=== PATIENT | female | born 1975 | race Caucasian/White ===

== ENCOUNTER 2017-09-07 16:39 | Emergency (ER) | payer BC ==
--- OUTSIDE RECORDS SUMMARY | 2017-09-07 16:48 | XMS REPORT ---
:1975 External Reference #:[id number] Author Organization [facility] Address [address] [place] [address] [place] [address] Phone [phone] Care Team Providers Name Role Phone Ryne Montanez MD Primary Care Physician Unavailable Payers Type Date Identification Numbers Payment Provider Subscriber Health Maintenance Policy Number: Blue Shield Ppo Kasey Chaparro [facility] (O) [id number] PayID: [id number] [address] [address] G[place]A Santa [address] Medigap Part B Effective: 03/29/2013 Policy Number: BS Levy Chaparro [id number] Expires: 10/21/2014 PayID: [id number] [address] [address] GISELLA Figueroa [address] Medigap Part B Effective: 05/27/2012 Policy Number: BS Levy Chaparro [id number] Expires: 03/28/2013 PayID: [id number] [address] [address] GISELLA Figueroa [address] Commercial Effective: Policy Number: BS Sandy Chaparro 03/29/2011 [id number] Facets Expires: 05/26/2012 Group Number: [id number] [address] [address] PayID: [id number] GISELLA Figueroa [address] Medigap Part B Expires: 03/28/2011 Policy Number: [id number] BS Anh MICHELA Chaparro Group Name: [employer] Option [address] [address] PayID: [id number] GISELLA Figueroa [address] Problems Date Description Provider Status Onset: 02/18/2010 Tobacco user Ryne Montanez M.D. Active Onset: 02/18/2010 Irritable bowel syndrome Ryne Montanez M.D. Active Onset: 02/18/2010 Neck pain Ryne Montanez M.D. Active Onset: 02/18/2010 Stress reaction causing mixed Rasta Zepeda M.D. Active disturbance of emotion and conduct Onset: 12/02/2010 Multiple sclerosis Ryne Montanez M.D. Active Onset: 12/02/2010 Cyst of ovary Ana Wolff M.D. Active Onset: 10/26/2012 External hordeolum Ryne Montanez M.D. Active Onset: 06/14/2014 Migraine without aura, not Ryne Montanez M.D. 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 Cigarette Use Pack Years - 18 Cigarette Use Quit - Age 33 Cigarette Use Restarted smoking 11/2009 Cigarette Use Quit smoking again 09/2010 Cigarette Use Quit 11/28/11 ETOH Use Occasionally consumes alcohol Smoking Patient is a former smoker Daily Caffeine Consumes on average 5-10 cups of regular coffee per day Allergies, Adverse Reactions, Alerts Date Description Reaction Status Severity Comments 07/12/2009 NKDA active Medications Medication Date Status Form Strength Qnty SIG Indications Ordering Provider Azithromycin 02/23/ Active Tablets 250mg 6tabs 2 tab J02.9 Ryne 2017 today and Tarik jones M.D. daily Amitriptyline 06/14/ Active Tablets 10mg 90tabs take 3 G43.009 Ryne HCL 2015 tablets at Tarik bedtime Luisa Dandelion Root / Active Capsules 520mg 1 tab po Unknown 0000 daily Ginko Biloba / Active 1 tab po Unknown 0000 daily Probiotic / Active Capsules 14caps 1 by mouth Unknown 0000 every day Multivitamins / Active Capsules 30caps 1 by mouth Unknown 0000 every day Vitamin C / Active Tablets 1000mg 1 by mouth Unknown 0000 every day Vitamin D 00/00/ Active 1 tab po Unknown 0000 daily Aubagio / Active Tablets 14mg Unknown 0000 Triamcinolone 09/12/ Hx Ointment 0.1% 80gm every day L23.7 Elver Acetonide 2016 - as needed Srinivas Etienne, 02/23/ M.D.,[facility] 2017 Medrol 09/12/ Hx Tablets 4mg 1pak medrol L23.7 Elver 2016 - dosepack Srinivas Etienne, 09/22/ as M.Srinivas,[facility] 2016 directed (patient will call if she wants filled) Azithromycin 10/24/ Hx Tablets 250mg 6tabs 2 tab 784.1 Ryne 2014 - and Pachikara then 1talarisa MRadha. 2015 daily Sumatriptan 06/14/ Hx Tablets 100mg 10tabs use at 346.10 Ryne Succinate 2014 - onset of Pachikara 02/23/ head , M.Srinivas 2017 ache,may repeat after 2h as needed Azithromycin 05/01/ Hx Tablets 250mg 6tabs 2 tab 466.0 Penfield 2014 - and Pachikara then 1camachob , M.DSimona 2014 daily Azithromycin 05/01/ Hx Tablets 250mg 6tabs 2 tab 466.0 Ryne 2014 - and Pachikara 1camachob MSimonaDSimona 2014 daily Copaxone 02/06/ Hx Soln 40mg/ml 36unit inject sq Rob Laureano 2013 - Prefill s 3x weekly Kevin, 01/08/ Syringe M.Srinivas 2016 No Active 09/08/ Unknown Medications 2013 - 2013 Aubagio 11/30/ Hx Tablets 7mg 30tabs 1 po qd Rob Laureano 2012 - Kevin 09/08/ M.DSimona 2013 Amoxicillin 02/25/ Hx Capsules 500mg 20caps 1 cap bid 461.1 Carolann 2011 - for 10 Soraya, 10/26/ days N.P. 2013 Nasal Saline 02/25/ Hx Solution 0.65% 1ml 2 sprays 461.1 Carolann 2011 - in each Soraya, 10/26/ nostril 5 N.P. 2013 times a day Bactrim DS 12/09/ Hx Tablets 800-160mg 6tabs twice 599.0 Carolann 2011 - daily for Soraya, 3 days N.P. 2011 Avonex 05/25/ Hx Kit 30mcg/0.5M 4units 30 mcg im Rob Laureano 2012 - L weekly Kevin, 11/30/ Luisa 2012 Chantix Starter 05/28/ Hx Tablets 1tabs as 305.1 Ryne Chakraborty 2010 - directed Pachikara 12/02/ Luisa 2010 Asa 03/25/ Hx 81mg 1 po qd Ryne 2009 - Pachikara 05/28/ Luisa 2010 Amoxicillin/Cla 02/11/ Hx Tablets 875-125mg 20tabs 1 po bid 461.9 Ryne vulanate 2009 - Pachikara Potassium 02/18/ Luisa 2009 Amitriptyline 12/04/ Hx Powder Ryne HCL 2009 - Pachikara 02/25/ Luisa 2011 Nicoderm CQ 12/04/ Hx Patches 14mg/24HR 30unit once daily 305.1 Ryne 2009 - 24HR s Pachikara 02/18/ Luisa 2009 None / Hx Unknown 0000 - 2009 Copaxone / Hx Kit 20mg/ml sc qd Unknown 0000 - 2011 Immunizations CPT Code Status Date Vaccine Lot # [id number] Given 05/15/2011 Measles Mumps And Rubella MMR [id number] Vital Signs Date Vital Result Comment 09/07/2017 Height 66 inches 5'6" Weight 157.00 lb Heart Rate 95 /min BP Systolic 118 mmHg BP Diastolic 80 mmHg O2 % BldC Oximetry 98 % BMI (Body Mass Index) 25.3 kg/m2 02/23/2017 Weight 145.00 lb Heart Rate 75 /min BP Systolic Sitting 118 mmHg BP Diastolic Sitting 72 mmHg Body Temperature 97.1 F O2 % BldC Oximetry 98 % 01/08/2017 Height 66 inches 5'6" Weight 143.12 lb Heart Rate 71 /min BP Systolic 106 mmHg BP Diastolic 74 mmHg Body Temperature 97.2 F O2 % BldC Oximetry 96 % BMI (Body Mass Index) 23.1 kg/m2 09/13/2015 Height 66 inches 5'6" Weight 151.38 lb BP Systolic 70 mmHg BP Systolic Standing 110 mmHg BP Diastolic Standing 78 mmHg Body Temperature 96.5 F O2 % BldC Oximetry 96 % BMI (Body Mass Index) 24.4 kg/m2 05/03/2015 Height 66 inches 5'6" Weight 146.38 lb Heart Rate 88 /min BP Systolic Sitting 118 mmHg BP Diastolic Sitting 72 mmHg Body Temperature 96.4 F O2 % BldC Oximetry 98 % BMI (Body Mass Index) 23.6 kg/m2 10/24/2014 Height 66 inches 5'6" Weight 143.00 lb Heart Rate 82 /min BP Systolic Sitting 100 mmHg BP Diastolic Sitting 60 mmHg Body Temperature 98.9 F O2 % BldC Oximetry 94 % BMI (Body Mass Index) 23.1 kg/m2 07/12/2014 Height 66 inches 5'6" Weight 149.00 lb Heart Rate 72 /min BP Systolic Sitting 124 mmHg BP Diastolic Sitting 78 mmHg Respiratory Rate 12 /min BMI (Body Mass Index) 24.0 kg/m2 06/14/2014 Height 66 inches 5'6" Weight 149.50 lb Heart Rate 91 /min BP Systolic Sitting 108 mmHg BP Diastolic Sitting 70 mmHg Pain Level 6 O2 % BldC Oximetry 95 % BMI (Body Mass Index) 24.1 kg/m2 06/06/2014 Height 66 inches 5'6" Weight 146.00 lb Heart Rate 68 /min BP Systolic Sitting 116 mmHg BP Diastolic Sitting 64 mmHg Respiratory Rate 16 /min BMI (Body Mass Index) 23.6 kg/m2 05/01/2014 Height 66 inches 5'6" Weight 148.50 lb Heart Rate 88 /min BP Systolic Sitting 110 mmHg BP Diastolic Sitting 60 mmHg Body Temperature 96.5 F O2 % BldC Oximetry 99 % BMI (Body Mass Index) 24.0 kg/m2 02/06/2014 Height 66 inches 5'6" Weight 138.00 lb Heart Rate 72 /min BP Systolic Sitting 104 mmHg BP Diastolic Sitting 82 mmHg Respiratory Rate 16 /min BMI (Body Mass Index) 22.3 kg/m2 12/26/2013 Height 66 inches 5'6" Weight 143.00 lb Heart Rate 64 /min BP Systolic Sitting 126 mmHg BP Diastolic Sitting 80 mmHg Respiratory Rate 16 /min BMI (Body Mass Index) 23.1 kg/m2 10/17/2013 Weight 143.00 lb Heart Rate 70 /min BP Systolic Sitting 110 mmHg BP Diastolic Sitting 110 mmHg 09/08/2013 Height 66 inches 5'6" Weight 144.00 lb Heart Rate 74 /min BP Systolic Sitting 110 mmHg BP Diastolic Sitting 70 mmHg BMI (Body Mass Index) 23.2 kg/m2 10/26/2012 Height 66 inches 5'6" Weight 138.00 lb Heart Rate 59 /min BP Systolic Sitting 116 mmHg BP Diastolic Sitting 80 mmHg BMI (Body Mass Index) 22.3 kg/m2 02/26/2012 Height 66 inches 5'6" Weight 139.00 lb Heart Rate 92 /min BP Systolic 100 mmHg BP Diastolic 80 mmHg Body Temperature 98.7 F BMI (Body Mass Index) 22.4 kg/m2 12/10/2011 Weight 146.00 lb Heart Rate 88 /min BP Systolic Sitting 108 mmHg BP Diastolic Sitting 70 mmHg Body Temperature 98.5 F lt ear 12/02/2010 Weight 146.00 lb Heart Rate 68 /min BP Systolic Sitting 112 mmHg BP Diastolic Sitting 68 mmHg 05/28/2010 Weight 136.00 lb Heart Rate 76 /min BP Systolic 116 mmHg BP Diastolic 70 mmHg 03/26/2010 Heart Rate 80 /min BP Systolic 114 mmHg BP Diastolic 80 mmHg 03/11/2010 Weight 135.00 lb Heart Rate 80 /min BP Systolic 108 mmHg BP Diastolic 78 mmHg 02/18/2010 Weight 139.00 lb Heart Rate 90 /min BP Systolic Sitting 120 mmHg BP Diastolic Sitting 80 mmHg 02/11/2010 Weight 142.00 lb Heart Rate 84 /min BP Systolic Sitting 116 mmHg BP Diastolic Sitting 70 mmHg Body Temperature 96.2 F Tympanically 12/04/2009 Weight 142.00 lb Heart Rate 93 /min BP Systolic Sitting 116 mmHg BP Diastolic Sitting 68 mmHg 10/03/2009 Weight 146.00 lb Heart Rate 76 /min BP Systolic Sitting 90 mmHg BP Diastolic Sitting 60 mmHg 07/31/2009 Heart Rate 78 /min BP Systolic Sitting 118 mmHg BP Diastolic Sitting 64 mmHg 07/12/2009 Height 65.75 inches 5'5.75" Weight 142.00 lb Heart Rate 92 /min BP Systolic 120 mmHg BP Diastolic 60 mmHg O2 % BldC Oximetry 93 % BMI (Body Mass Index) 23.1 kg/m2 Results Test Date Test Result H/L Range Note Laboratory test finding 02/23/2017 Rapid Group A Strep positive Lipid Profile (Trig/Chol/HDL) 01/01/2017 Triglycerides 56 mg/dL 1 Cholesterol 172 mg/dL 2 HDL Cholesterol 68.9 mg/dL 3 LDL Cholesterol 92 mg/dL 4 Laboratory test finding 01/01/2017 Glucose 84 mg/dL 70-100 TSH (Thyroid Stim Horm) 1.37 mcIU/mL 0.34-5.60 Free T4 (Free Thyroxine) 0.67 ng/dL 0.61-1.12 Laboratory test finding 10/24/2014 Rapid Group A Strep negative Laboratory test finding 10/24/2014 Culture Throat SEE RESULT BELOW 5 Laboratory test finding 06/14/2014 Erythrocyte Sed Rate 9 mm/Hr 0-14 Comp Metabolic Panel 12/01/2012 Sodium 140 mmol/L 133-145 Potassium 4.9 mmol/L 3.5-5.0 Chloride 109 mmol/L 101-111 Co2 Carbon Dioxide 27.0 mmol/L 22-32 Anion Gap 4.0 mmol/L 2-11 Glucose 82 mg/dL 70-100 Blood Urea Nitrogen 13 mg/dL 6-24 Creatinine 0.60 mg/dL 0.50-1.40 BUN/Creatinine Ratio 21.7 High 8-20 Calcium 9.5 mg/dL 8.1-9.9 Total Protein 7.2 g/dL 6.2-8.1 Albumin 4.0 g/dL 3.6-5.4 Globulin 3.2 g/dL 2-4 Albumin/Globulin Ratio 1.3 1-3 Total Bilirubin 0.6 mg/dL 0.4-1.5 Alkaline Phosphatase 34 U/L 30-110 Alt 10 U/L Low 14-54 Ast 17 U/L 12-42 Egfr Non- 112.5 >60 Egfr 144.7 >60 6 CBC With Manual Diff 12/01/2012 White Blood Count 3.9 10^3/uL Low 4.8- 10.8 Red Blood Count 4.67 10^6/uL 4.0-5.4 Hemoglobin 12.7 g/dL 12.0-16.0 Hematocrit 38 % 35-47 Mean Corpuscular Volume 81 fL 80-97 Mean Corpuscular Hemoglobin 27 pg 27-31 Mean Corpuscular HGB Conc 34 g/dL 31-36 Red Cell Distribution Width 15 % 10.5-15 Platelet Count 228 10^3/uL 150-450 Mean Platelet Volume 8 um3 7.4-10.4 Abs Neutrophils 2.1 10^3/uL 1.5-7.7 Abs Lymphocytes 1.2 10^3/uL 1.0-4.8 Abs Monocytes 0.3 10^3/uL 0-0.8 Abs Eosinophils 0.2 10^3/uL 0-0.6 Abs Basophils 0 10^3/uL 0-0.2 Abs Nucleated RBC 0 10^3/uL Neutrophil % 49 % 38-83 Lymphocytes % 39 % 25-47 Monocytes % 4 % 0-13 Eosinophils % 6 % 0-6 Reactive Lymph % 2 % 0-6 RBC Morphology Normal Normal Urinalysis W/Microscopic 12/10/2011 Ua Color YELLOW Yellow Appearance-Urine CLEAR Clear Specific Hillister-Ur 1.010 1.010-1.030 Esterase-Urine 1+ Negative Nitrite NEGATIVE Negative Gannpteltpts-Mu-FPC NEGATIVE Negative Protein-Urine NEGATIVE Negative PH-Urine 8.0 5-9 Blood-Urine NEGATIVE Negative Ketones-Urine NEGATIVE Negative Bilirubin-Ur NEGATIVE Negative Glucose-Urine NEGATIVE Negative WBC-Urine 5-10 0-5 RBC-Urine NONE SEEN 0-2 Epith Cells-Ur MODERATE None Bacteria-Urine TRACE None Urine Culture & 12/10/2011 M <SEE 7 Sensitivi NOTE> Ua Routine 12/10/2011 Ua Specific Hillister 1.000 Ua PH 8.5 Ua Color yellow Ua Appera clear Ua WBC trace Ua Protein neg Ua Glucose neg Ua Ketones neg Ua Bilirubin small Ua Urobilinogen neg Ua Nitrite neg Ua Occult Blood trace Comp Metabolic Panel 07/23/2011 Sodium 133 mmol/L Low 135-145 Potassium 4.0 mmol/L 3.5-5.0 Chloride 102 mmol/L 101-111 Co2 (Carbon Dioxide) 28.0 mmol/L 22-32 Anion Gap 3.0 mmol/L 2-11 8 Glucose 87 mg/dL 70-100 BUN 6 mg/dL 6-24 Creatinine 0.7 mg/dL 0.50-1.40 One Over Creatinine 1.42 BUN/Creatinine Ratio 8.6 8-20 Calcium 8.7 mg/dL 8.1-9.9 Total Protein 6.8 GM/DL 6.2-8.1 Albumin 3.7 GM/DL 3.6-5.4 Globulin 3.1 GM/DL 2-4 Albumin/Globulin Ratio 1.2 1-3 Bilirubin Total 0.6 mg/dL 0.4-1.5 9 Alkaline Phosphatase 63 U/L 30-110 Alt (SGPT) 21 U/L 14-54 Ast (Sgot) 21 U/L 12-42 eGFR Non- 94.7 > 60 eGFR 121.8 > 60 10 CBC With Manual Diff 07/23/2011 White Blood Count 5.9 CUMM 4.8-10.8 Red Cell Count 4.31 CUMM 4.2-5.4 Hemoglobin 11.5 g/dL Low 12.0-16.0 Hematocrit 34 % Low 35-47 Mean Corpuscular Volume 79 um3 79-97 Mean Corpuscular Hemoglob 27 pg 27-31 Mean Corpuscular HGB Cone 34 g/dL 32-36 Redcell Distribution WDTH 16 % High 10.5-15 Platelet Count 321 CUMM 150-450 Mean Platelet Volume 7.7 um3 7.4-10.4 Polysegmented Neutrophil 56 % 38-83 Lymphocyte 38 % 25-47 Monocyte 2 % 0-13 Eosinophil 1 % 0-6 Basophil 1 % 0-2 Atypical Lymph 2 % 0-6 Absolute Neutrophil Count 3.30 RBC Morphology NORMAL Laboratory test finding 05/11/2011 Mumps Igg Negative () 11 Rubeola Igg AB Positive () 12 Rubella Screen EQUIVOCAL Immune 13 Laboratory test finding 04/14/2010 Erythrocyte Sed Rate 8 MM/HR 0-15 Angiotensin Converting Enzyme 18 U/L 8-53 14 Lyme Disease Serology Negative Negative 15 Jenn (Antinuclear Antibodies) 04/14/2010 Antinuclear AB NEGATIVE Negative Ssa/SSB 04/14/2010 Ssa NEGATIVE Negative SSB NEGATIVE Negative CBC With Electronic Diff 02/18/2010 White Blood Count 6.8 CUMM 4.8-10.8 Red Cell Count 4.66 CUMM 4.2-5.4 Hemoglobin 12.3 g/dL 12.0-16.0 Hematocrit 37 % 35-47 Mean Corpuscular Volume 80 um3 79-97 Mean Corpuscular Hemoglob 26 pg Low 27-31 Mean Corpuscular HGB Cone 33 g/dL 32-36 Redcell Distribution WDTH 16 % High 10.5-15 Platelet Count 298 CUMM 150-450 Mean Platelet Volume 7.6 um3 7.4-10.4 Gran % 77.2 % 38-83 Lymph % 15.8 % Low 25-47 Mononuclear % 5.2 % 1-9 Eosinophil % 0.7 % 0-6 Basophil % 1.1 % 0-2 Abs Lymphs 1.1 1.0-4.8 Abs Mononuclear 0.4 0-0.8 Absolute Neutrophil Count 5.3 1.5-7.7 Abs Eosinophils 0 0-0.6 Abs Basophils 0.1 0-0.2 16 Comp Metabolic Panel 02/18/2010 Sodium 135 mmol/L 135-145 Potassium 4.0 mmol/L 3.5-5.0 Chloride 103 mmol/L 101-111 Co2 (Carbon Dioxide) 26.0 mmol/L 22-32 Anion Gap 6.0 mmol/L 2-11 17 Glucose 92 mg/dL 70-100 18 BUN 4 mg/dL Low 6-24 Creatinine 0.70 mg/dL 0.50-1.40 One Over Creatinine 1.40 BUN/Creatinine Ratio 5.7 Low 8-20 Calcium 9.3 mg/dL 8.1-9.9 Total Protein 7.4 GM/DL 6.2-8.1 Albumin 4.4 GM/DL 3.6-5.4 Globulin 3.0 GM/DL 2-4 Albumin/Globulin Ratio 1.5 1-3 Bilirubin Total 0.7 mg/dL 0.4-1.5 19 Alkaline Phosphatase 45 U/L 30-110 Alt (SGPT) 12 U/L Low 14-54 Ast (Sgot) 16 U/L 12-42 eGFR Non- 101.2 > 60 eGFR 122.5 > 60 20 Laboratory test finding 02/18/2010 TSH 1.18 MIU/ML 0.34-5.60 Vitamin B12 And Folate Serum 02/18/2010 Vitamin B12 355 pg/mL 180-914 Folic Acid 5.7 NG/ML 2-16 1 Desirable <150 Borderline high 150-199 High 200-499 Very High >500 2 Desirable <200 Borderline high 200-239 High >239 3 Low <40 Desirable: 40-60 High: >60 4 Desirable: <100 mg/dL Near Optimal: 100-129 mg/dL Borderline High: 130-159 mg/dL High: 160-189 mg/dL Very High: >189 mg/dL 5 SEE RESULT BELOW Name: KASEY CHAPARRO : [address]: Ryne Montanez MD Acct: [id number] Unit: [id number] AGE: 38 Location: [facility] Re10/24/14 SEX: F Status: REG REF SPEC: [id number] YESENIA: 10/24/14-7 [facility] [address]: Ryne Montanez MD REQ: [id number] RECD: 10/24/14 STATUS: COMP _ SOURCE: THROAT SPDESC: ORDERED: Throat Culture Procedure Result Verified Site Throat Culture Final 10/26/14- 0820 ML Organism 1 STREP GROUP B Quantity 2+ Throat cultures are clinically indicated to detect the presence of group A strep, arcanobacterium and yeast. In certain cases, predominating organisms will be reported.Susceptibility testing of penicillins and other B-lactamsapproved by FDA for treatment of Streptococcus pyogenes(Group A Strep) and Streptococcus agalactiae (Group B Strep)is not necessary for clinical purposes and need not be doneroutinely, since as with vancomycin, resistant strains havenot been recognized. (CLSI K356-N05;p.66) Positive isolates will be saved for one week. Please call the Microbiology Laboratory if further susceptibility testing is needed. * ML - MAIN LAB ([facility]) . END OF REPORT * ML=Testing performed at Main Lab DEPARTMENT OF PATHOLOGY, [address] [place] [address] John Burrows M.D. Director [facility] # [id number] 6 Because ethnic data is not always readily available, this report includes an eGFR for both -Americans and non- Americans. The National Kidney Disease Education Program (NKDEP) does not endorse the use of the MDRD equation for patients that are not between the ages of 18 and 70, are , have extremes of body size, muscle mass, or nutritional status, or are non- or non-. According to the National Kidney Foundation, irrespective of diagnosis, the stage of the disease is based on the level of kidney function: Stage Description GFR(mL/min/1.73 m(2)) 1 Kidney damage with normal or decreased GFR 90 2 Kidney damage with mild decrease in GFR 60-89 3 Moderate decrease in GFR 30-59 4 Severe decrease in GFR 15-29 5 Kidney failure <15 (or dialysis) 7 RUN DATE: 12/13/11 [facility] NMI LIVE PAGE 1 RUN TIME: 936 Specimen Inquiry RUN USER: INTERFACE Name: KASEY VALENTIN Status: REG REF Re12/10/11 Age/Sex: 35/F Unit#: [id number] Location: [facility] : 73 SPEC #: [id number] YESENIA: 12/10/11-1015 STATUS: COMP REQ #: [id number] RECD: 12/10/11-[address] [facility] [address]: Carolann Lira NP SOURCE: URINE ENTR: 12/10/11-[address]: SPDES: ORDERED: URINE C S QUERIES: MEDENT REQUISITION # [id number] SPECIMEN DESCRIPTION: URINE, RANDOM Procedure Result Verified Site > URINE CULTURE SENSITIVI Final -0937 ML Organism 1 STAPHYLOCOCCUS SAPROPHYTICUS Routine testing of urine isolates of S. saprophyticus is not advised, because infections respond to concentrations achieved in urine of antimicrobial agents commonly used to treat acute, uncomplicated urinary tract infections (e.g. nitrofurantoin, trimethoprim+/- sulfamethoxazole, or a fluoroquinolone). [facility] March 2001 COLONY COUNT >100,000 ORGANISMS/ML (MANY) - [facility] Permit #[id number] [facility] [employer] [place] [address] DEPARTMENT OF PATHOLOGY, [facility] [employer] [place], [place] [address] [facility] Permit #[id number] John Burrows M.D. Director Violetta Carey M.D. Extender 8 Anion gap measurement may be of limited value in the presence of any alkalosis, especially in a combined acid base disorder. . 9 A metabolite of Naproxen, O-desmethylnaproxen, has been shown to interfere with the Jendrassik-Krystle method for measuring total bilirubin. Samples from patients who have taken Naproxen have shown spurious elevation in total bilirubin levels. 10 Because ethnic data is not always readily available, this report includes an eGFR for both -Americans and non- Americans. The National Kidney Disease Education Program (NKDEP) does not endorse the use of the MDRD equation for patients that are not between the ages of 18 and 70, are , have extremes of body size, muscle mass, or nutritional status, or are non- or non-. According to the National Kidney Foundation, irrespective of diagnosis, the stage of the disease is based on the level of kidney function: Stage Description GFR(mL/min/1.73 m(2)) 1 Kidney damage with normal or decreased GFR 90 2 Kidney damage with mild decrease in GFR 60-89 3 Moderate decrease in GFR 30-59 4 Severe decrease in GFR 15-29 5 Kidney failure <15 (or dialysis) 11 -- REFERENCE VALUE -- Negative 12 -- REFERENCE VALUE -- Negative Test Performed by: [facility] Dpt of Lab Med and Pathology [address] [place] [address] Product Marketing Executive: Rui Pinto III, M.D. 13 EQUIVOCAL;SUGGEST RETEST WITH ANOTHER SAMPLE IN 14-21 DAYS. 14 The use of angiotensin converting enzyme (CLARE)-inhibiting antihypertensive drugs will cause decreased CLARE values. Test Performed by: [facility] Dpt of Lab Med and Pathology [address] [place], [place] [id number] Product Marketing Executive: Rui Pinto III, M.D. 15 Serologic response to B. burgdorferi infection is not detected, but cannot rule out early infection during which low or undetectable antibody levels to B. burgdorferi may be present. If clinically indicated, a new serum specimen should be submitted in 7-14 days. Test Performed by: [facility] Dpt of Lab Med and Pathology [address] [place] [id number] Product Marketing Executive: Rui Pinto III, M.D. 16 Lymphopenia % 17 Anion gap measurement may be of limited value in the presence of any alkalosis, especially in a combined acid base disorder. . 18 Note change in reference range as of 11/17/07. The change was based on recommendations from the [place] [employer]. 19 A metabolite of Naproxen, O-desmethylnaproxen, has been shown to interfere with the Jendrassik-Krystle method for measuring total bilirubin. Samples from patients who have taken Naproxen have shown spurious elevation in total bilirubin levels. 20 Because ethnic data is not always readily available, this report includes an eGFR for both -Americans and non- Americans. The National Kidney Disease Education Program (NKDEP) does not endorse the use of the MDRD equation for patients that are not between the ages of 18 and 70, are , have extremes of body size, muscle mass, or nutritional status, or are non- or non-. According to the National Kidney Foundation, irrespective of diagnosis, the stage of the disease is based on the level of kidney function: Stage Description GFR(mL/min/1.73 m(2)) 1 Kidney damage with normal or decreased GFR 90 2 Kidney damage with mild decrease in GFR 60-89 3 Moderate decrease in GFR 30-59 4 Severe decrease in GFR 15-29 5 Kidney failure <15 (or dialysis) Procedures Date CPT Code Description Status 06/03/2015 Mammogram Completed 07/26/2009 61525 Treadmill Interp/Report Only Completed 07/26/2009 59670 Stress Test Supervsn W/Out I/R Completed 07/12/2009 49926 Noninvasive Ear Or Pulse Oximetry For Oxygen Saturation Completed 07/12/2009 95414 EKG Tracing & Interpretation Completed Encounters Type Date Location Provider CPT E/M Dx Office Visit 02/23/2017 [facility] Ryne Montanez, 35642 J02.9 10:20a - [address] M.D. Office Visit 01/08/2017 [facility] [place] Rod[place]guez[place], 17149 Z00.00 3:20p - [address] M.D. Office Visit 09/13/2015 [facility] Elver Etienne, [address]28 L23.7 4:20p - [address] M.D.,FACP Office Visit 05/03/2015 [facility] [place] [address] N63 2:00p - [address] Office Visit 10/24/2014 [facility] Ryne Montanez, 14155 784.1 11:40a - Keisha Moran 462 Office Visit 07/12/2014 10:45a [facility] Rob Brown, 54285 784.0 MChirag 340 Office Visit 06/14/2014 4:00p [facility] Ryne Montanez, [address]171 346.10 - [address] M.D. Office Visit 06/06/2014 2:30p [facility] Rob Brown, [address] 340 [employer] M.D. Office Visit 05/01/2014 11:20a [facility] Ryne Montanez, [address]137 466.0 - [address] M.D. Office Visit 02/06/2014 10:45a [facility] Rob Brown, 64867 340 [facility] [employer] M.D[employer] Office Visit 12/26/2013 3:30p [facility] Rob Brown, 42453 340 [facility] [employer] M.D[employer] Office Visit 10/17/2013 1:30p [facility] Merari Higgins M.D. 66523 535.50 - [place] Office Visit 09/08/2013 3:00p [facility] Merari Higgins M.D. 76489 V70.0 - Keisha 785.9 723.1 246.8 340 Office Visit 11/30/2012 1:45p [facility] Rob Brown 26195 340 [facility] [employer] M.D[employer] Office Visit 10/26/2012 2:40p [facility] Ryne Montanez, 19828 373.11 - [place] Moran Office Visit 02/26/2012 2:30p [facility] Carolann Lira, 71456 461.1 - [place] N.P. Office Visit 12/10/2011 10:00a [facility] Carolann Lira, 23794 788.1 - [place] N.P. 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 92978 340 [facility] Office Visit 05/28/2010 9:00a DO Not Use [employer] AT Ryne Montanez M.D. 71072 340 [facility] 305.1 V72.62 Office Visit 03/26/2010 8:00a DO Not Use [employer] AT Ryne Montanez M.D. 41867 436 [facility] 305.1 Office Visit 03/11/2010 10:00a DO Not Use [employer] AT Ryne Montanez M.D. 72667 340 [facility] Office Visit 02/18/2010 10:40a DO Not Use [employer] AT Ryne Montanez M.D. 00094 340 [facility] Office Visit 02/11/2010 11:20a DO Not Use [employer] AT Ryne Montanez M.D. 45585 461.9 [facility] 466.0 Office Visit 12/04/2009 4:00p DO Not Use [employer] AT Ryne Montanez M.D. 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 at [facility] - [address] - Ryne Montanez M.D.R31.9 Hematuria, unspecifiedNew Xrays:US Renal And BladderComments:If US is -ve need CT abd and pelvis. ? NephrolithiasisFollow up:2 days
[2017-09-07 17:35] LABS: ABS Basophils 0.1 10^3/ul (0-0.2); ABS Eosinophils 0.2 10^3/ul (0-0.6); ABS Lymphocytes 1.6 10^3/ul (1.0-4.8); ABS Monocytes 0.4 10^3/ul (0-0.8); ABS Neutrophils 4.3 10^3/ul (1.5-7.7); ABS Nucleated RBC 0 10^3/ul; Eosinophil % 3.1 % (0-6); Hematocrit 39 % (35-47); Hemoglobin 12.7 g/dl (12.0-16.0); Lymphocyte % 24.6 % (25-47); Mean Corpuscular HGB Conc 33 g/dl (31-36); Mean Corpuscular Hemoglobin 27 pg (27-31); Mean Corpuscular Volume 83 fL (80-97); Mean Platelet Volume 7.8 um3 (7.4-10.4); Nucleated Red Blood Cells % 0.1; Platelet Count 287 10^3/ul (150-450); Red Blood Count 4.68 10^6/ul (4.00-5.40); Red Cell Distribution Width 15 % (10.5-15); White Blood Count 6.7 10^3/ul (3.5-10.8)
[2017-09-07 17:57] LABS: EGFR Non-African American 86.1 (>60)
--- NOTE | 2017-09-07 19:26 | ED ---
GI/ HPI - HPI Summary HPI Summary: 41-year-old female presents with right-sided flank pain for the past couple days. She denies any history of kidney stones. She denies any pain with urination. She admits occasional hesitancy. She is currently on her period. No abnormal vaginal discharge. Occasional nausea but denies any vomiting. She denies any diarrhea or constipation. She denies any injury. No previous belly surgeries. Pain is mild. Pain is also located in left lower quadrant. Has history of ovarian cysts. No pelvic pain. Pain occasionally radiates to the right leg. No midline tenderness back. No saddle anesthesia. No loss of bowel or bladder. has not tried anything for symptoms. - History of Current Complaint Chief Complaint: EDFlankPain Time Seen by Provider: 09/07/17 17:32 Stated Complaint: FLANK PAIN Pain Intensity: 5 - Allergy/Home Medications Allergies/Adverse Reactions: Allergies Allergy/AdvReac Type Severity Reaction Status Date / Time No Known Allergies Allergy Verified 09/07/17 16:40 Home Medications: Home Medications Amitriptyline TAB* [Elavil TAB*] 30 mg PO DAILY 09/07/17 [History Confirmed 03/15] Ascorbic Acid TAB* [Vitamin C TAB*] 500 mg PO DAILY 09/07/17 [History Confirmed 09/07/17] Calcium Carbonate [Calcium] 500 mg PO DAILY 09/07/17 [History Confirmed 09/07/17 ] Cholecalciferol TAB* [Vitamin D TAB*] 1,000 unit PO DAILY 09/07/17 [History Confirmed 09/07/17] Dandelion Root 1 tab PO DAILY 09/07/17 [History Confirmed 09/07/17] Multivitamins/Minerals TAB* [Theragran/minerals TAB*] 1 tab PO DAILY 09/07/17 [ History Confirmed 09/07/17] Teriflunomide [Aubagio] 7 mg PO DAILY 09/07/17 [History Confirmed 09/07/17] PMH/Surg Hx/FS Hx/Imm Hx Endocrine/Hematology History: Denies: Hx Diabetes Cardiovascular History: Denies: Hx Hypertension, Hx Pacemaker/ICD History: Denies: Hx Dialysis, Hx Renal Disease Sensory History: Denies: Hx Hearing Aid Psychiatric History: Denies: Hx Panic Disorder - Cancer History Hx Chemotherapy: No Hx Radiation Therapy: No - Surgical History Surgery Procedure, Year, and Place: TUBAL LIGATION,THYROID - Immunization History Immunizations Up to Date: Yes Infectious Disease History: No Infectious Disease History: Denies: Traveled Outside the [place] in Last 30 Days - Social History Alcohol Use: Occasionally Substance Use Type: Reports: None Smoking Status (MU): Former Smoker Review of Systems Negative: Fever Negative: Chest Pain Negative: Shortness Of Breath All Other Systems Reviewed And Are Negative: Yes Physical Exam Triage Information Reviewed: Yes Vital Signs On Initial Exam: Initial Vitals Temp Pulse Resp BP Pulse Ox 99 F 87 16 128/81 100 09/07/17 16:40 09/07/17 16:40 09/07/17 16:40 09/07/17 16:40 09/07/17 16:40 Vital Signs Reviewed: Yes Appearance: Positive: Well-Appearing Skin: Positive: Warm, Dry Head/Face: Positive: Normal Head/Face Inspection Eyes: Positive: Normal, Conjunctiva Clear Respiratory/Lung Sounds: Positive: Clear to Auscultation, Breath Sounds Present Cardiovascular: Positive: Normal, RRR Abdomen Description: Positive: Soft, CVA Tenderness (L), Other: - mild LLQ tendernss. Negative: CVA Tenderness (R) Bowel Sounds: Positive: Present Musculoskeletal: Positive: Normal Neurological: Positive: Normal Psychiatric: Positive: Normal Diagnostics - Vital Signs Vital Signs Temp Pulse Resp BP Pulse Ox 09/07/17 19:12 89 98 09/07/17 18:23 76 107/80 100 09/07/17 18:00 79 100 09/07/17 17:53 79 118/82 100 09/07/17 17:34 78 100 09/07/17 16:40 99 F 87 16 128/81 100 - Laboratory Lab Results: Lab Results 09/07/17 09/07/17 Range/Units 17:28 17:28 WBC 6.7 (3.5-10.8) 10^3/ul RBC 4.68 (4.00-5.40) 10^6/ul Hgb 12.7 (12.0-16.0) g/dl Hct 39 (35-47) % MCV 83 (80-97) fL MCH 27 (27-31) pg MCHC 33 (31-36) g/dl RDW 15 (10.5-15) % Plt Count 287 (150-450) 10^3/ul MPV 7.8 (7.4-10.4) um3 Neut % (Auto) 65.2 (38-83) % Lymph % (Auto) 24.6 L (25-47) % Coles % (Auto) 5.8 (0-7) % Eos % (Auto) 3.1 (0-6) % Baso % (Auto) 1.3 (0-2) % Absolute Neuts (auto) 4.3 (1.5-7.7) 10^3/ul Absolute Lymphs (auto) 1.6 (1.0-4.8) 10^3/ul Absolute Monos (auto) 0.4 (0-0.8) 10^3/ul Absolute Eos (auto) 0.2 (0-0.6) 10^3/ul Absolute Basos (auto) 0.1 (0-0.2) 10^3/ul Absolute Nucleated RBC 0 10^3/ul Nucleated RBC % 0.1 Sodium 138 L (139-145) mmol/L Potassium 4.3 (3.5-5.0) mmol/L Chloride 105 (101-111) mmol/L Carbon Dioxide 28 (22-32) mmol/L Anion Gap 5 (2-11) mmol/L BUN 10 (6-24) mg/dL Creatinine 0.74 (0.51-0.95) mg/dL Est GFR ( Amer) 110.7 (>60) Est GFR (Non-Af Amer) 86.1 (>60) BUN/Creatinine Ratio 13.5 (8-20) Glucose 96 (70-100) mg/dL Calcium 9.4 (8.6-10.3) mg/dL Total Bilirubin 0.30 (0.2-1.0) mg/dL AST 15 (13-39) U/L ALT 11 (7-52) U/L Alkaline Phosphatase 42 (34-104) U/L C-Reactive Protein < 1.00 (< 5.00) mg/L Total Protein 7.3 (6.4-8.9) g/dL Albumin 4.4 (3.2-5.2) g/dL Globulin 2.9 (2-4) g/dL Albumin/Globulin Ratio 1.5 (1-3) Lipase 19 (11.0-82.0) U/L Beta HCG, Quant < 0.60 mIU/mL Result Diagrams: 09/07/17 17:28 09/07/17 17:28 Lab Statement: Any lab studies that have been ordered have been reviewed, and results considered in the medical decision making process. - Ultrasound No standard instances Ultrasound Interpretation: No Acute Changes Ultrasound Interpretation Completed By: Lin DODD Course/Dx - Course Course Of Treatment: 41-year-old female presents with right-sided flank pain for the past couple days. She denies any history of kidney stones. She denies any pain with urination. She admits occasional hesitancy. She is currently on her period. No abnormal vaginal discharge. Occasional nausea but denies any vomiting. She denies any diarrhea or constipation. She denies any injury. No previous belly surgeries. Pain is mild. Pain is also located in left lower quadrant. Has history of ovarian cysts. No pelvic pain. Pain occasionally radiates to the right leg. No midline tenderness back. No saddle anesthesia. No loss of bowel or bladder. has not tried anything for symptoms. on exam has tenderness mild LLQ and left flank. not clinically like a kidney stone patient. labs wnl. crp normal. urine likely a contaminent. discussed CT for want to be sure if no kidney stone and patient declined. renal and pelvic u/s normal. told to follow up with primary. patient understand and agrees with plan. - Diagnoses Differential Diagnoses - Female: Pyelonephritis, Urinary Tract Infection, Ureteral Calculi Provider Diagnoses: Flank pain Discharge - Sign-Out/Discharge Documenting (check all that apply): Discharge/Admit/Transfer - Discharge Plan Condition: Good Disposition: HOME Patient Education Materials: Flank Pain (ED) Referrals: Ryne Montanez MD [Primary Care Provider] - Additional Instructions: Take Tylenol or ibuprofen every 6 hours as needed for pain Place ice or heat on area Follow up with primary within 5 days Return to ED if develop any new or worsening symptoms - Billing Disposition and Condition Condition: GOOD Disposition: Home
[2017-09-07 19:36] VITALS: BP 117/78
--- NOTE | 2017-09-07 19:40 | RAD ---
INDICATION: Left lower quadrant pain. COMPARISON: Comparison is made with a prior pelvic ultrasound from August 29, 2009. TECHNIQUE: Multiple real-time transabdominal images of the pelvis were obtained. FINDINGS: The uterus is mildly enlarged and slightly heterogeneous in echogenicity. No discrete fibroid is seen. The uterus measured 11.0 x 4.6 x 5.7 cm. The endometrial echo measured 0.5 cm in thickness. The right ovary measured 3.4 x 2.3 x 2.6 cm. The left ovary measured 3.1 x 1.8 x 2.3 cm. There is vascular flow within both ovaries. There are small bilateral follicular cysts. No free intraperitoneal fluid is seen. IMPRESSION: MILDLY ENLARGED UTERUS, OTHERWISE UNREMARKABLE STUDY.
--- NOTE | 2017-09-07 19:44 | RAD ---
INDICATION: Left flank pain. COMPARISON: Comparison is made with a prior CT of the abdomen and pelvis from July 03, 2009. TECHNIQUE: Multiple real-time images of the left kidney were obtained. FINDINGS: The left kidney is normal in size shape and echogenicity. The kidney measured 10.3 x 4.8 x 4.4 cm. There is a 6 mm echogenic focus in the upper pole of the kidney possibly representing a nonobstructing calculus. No hydronephrosis is seen. Images of the urinary bladder demonstrate bilateral ureteral vesicle jets. IMPRESSION: POSSIBLE NONOBSTRUCTING LEFT RENAL CALCULUS.
[2017-09-07 20:26] LABS: Urine Appearance Clear; Urine Blood 3+ (Negative); Urine Color Yellow; Urine Ketones Negative (Negative); Urine Protein Negative (Negative); Urine Specific Gravity 1.013 (1.010-1.030); Urine Urobilinogen Negative (Negative)
== END 2017-09-07 20:44 | disposition home or self-care (01) ==
LOC: ED 16:39
DX: R10.32 Left lower quadrant pain (principal); N85.2 Hypertrophy of uterus; Z87.891 Personal history of nicotine dependence
CPT/HCPCS: 36415; 76775; 76856; 80053; 81003; 83690; 84702; 85025; 86140; 87086; 99283

== ENCOUNTER 2018-12-20 11:52 | Emergency (ER) | payer BC ==
[2018-12-20] MEDS ORDERED: NS 0.9% 1000 ML** 1,000 ML IV ONE (12:02)
--- NOTE | 2018-12-20 12:08 | ED ---
Abdominal Pain/Female - HPI Summary HPI Summary: This patient is a 42 year [facility] F [facility] with a chief complaint of lower abdominal pain since 12/13/18. Patient states that one week ago she was treated for a UTI and was prescribed antibiotics. Patient states that since finishing she has had little pain which resolved but worsened on 12/19/18. Patient states that she woke up Patient states that she went to see her PCP on 12/20/18 in AM and was sent to the ED. Patient states that she took The patient rates the pain 3/10 in severity. Symptoms aggravated by nothing. Symptoms alleviated by nothing. Patient reports lower abdominal pain that radiates to bilaterally into her legs. Patient denies nausea, vomiting, dysuria , no vaginal discharge or vaginal bleeding. Patient states that her LKNMP was 11/29/18. Patient denies tobacco use and substance abuse. Patient reports EtOH use. Home Medications Medication Instructions Recorded Confirmed Type Ascorbic Acid TAB* [Vitamin C 1,000 mg PO DAILY 09/07/17 11/02/18 History TAB*] Calcium Carbonate [Calcium] 500 mg PO DAILY 09/07/17 11/02/18 History Cholecalciferol TAB* [Vitamin D 1,000 unit PO DAILY 09/07/17 11/02/18 History TAB*] Dandelion Root 520 mg PO DAILY 09/07/17 11/02/18 History Multivitamins/Minerals TAB* 1 tab PO DAILY 09/07/17 11/02/18 History [Theragran/minerals TAB*] Amantadine CAP* [Symmetrel CAP*] 100 mg PO DAILY 11/02/18 11/02/18 History Amitriptyline TAB* [Elavil TAB*] 30 mg PO BEDTIME 11/02/18 11/02/18 History Ginko Biloba 1 tab PO DAILY 11/02/18 11/02/18 History L.acidoph,Paracasei, B.lactis 1 cap PO DAILY 11/02/18 11/02/18 History [Probiotic] Oxybutynin Chloride [Oxybutynin 10 mg PO BEDTIME 11/02/18 11/02/18 History Chloride ER] Teriflunomide [Aubagio] 14 mg PO DAILY 11/21/18 11/21/18 History - History of Current Complaint Chief Complaint: EDAbdPain Stated Complaint: ABD PAIN PER EMS Time Seen by Provider: 12/20/18 12:02 Hx Obtained From: Patient ?: No Onset/Duration: Sudden Onset, Lasting Hours Timing: Constant Severity Currently: Mild Pain Intensity: 3 Pain Scale Used: 0-10 Numeric Location: Diffuse, Discrete At: RLQ Radiates: Yes Radiates to: Other - bilateral lower extremities Aggravating Factor(s): Nothing Alleviating Factor(s): Nothing Associated Signs and Symptoms: Positive: Constipation - last BM 12/19/18. Negative: Vaginal Bleeding, Vaginal Discharge, Nausea, Vomiting Allergies/Adverse Reactions: Allergies Allergy/AdvReac Type Severity Reaction Status Date / Time No Known Allergies Allergy Verified 11/21/18 14:33 Home Medications: Home Medications Ginkgo Biloba (NF) [Ginkgo Biloba Extract (NF)] 40 mg PO DAILY 12/20/18 [ History Confirmed 12/20/18] PMH/Surg Hx/FS Hx/Imm Hx Endocrine/Hematology History: Denies: Hx Diabetes Cardiovascular History: Denies: Hx Hypertension, Hx Pacemaker/ICD History: Denies: Hx Dialysis, Hx Renal Disease Sensory History: Denies: Hx Hearing Aid Psychiatric History: Denies: Hx Panic Disorder - Cancer History Hx Chemotherapy: No Hx Radiation Therapy: No - Surgical History Surgical History: Yes Surgery Procedure, Year, and Place: TUBAL LIGATION,THYROID Infectious Disease History: No Infectious Disease History: Denies: Traveled Outside the [place] in Last 30 Days - Social History Alcohol Use: Occasionally Substance Use Type: Reports: None Hx Tobacco Use: Yes Smoking Status (MU): Former Smoker Review of Systems Negative: Vomiting, Nausea Positive: incontinence - Last BM was on 12/19/18. Negative: dysuria, discharge - vaginal discharge or vaginal bleeding All Other Systems Reviewed And Are Negative: Yes Physical Exam - Summary Physical Exam Summary: Constitutional: Well-developed, Well-nourished, Alert. (-) Distressed Skin: Warm, Dry HENT: Normocephalic; Atraumatic Eyes: Conjunctiva normal Neck: Musculoskeletal ROM normal neck. (-) JVD, (-) Stridor, (-) Tracheal deviation Cardio: Tachycardic, Heart sounds normal; Intact distal pulses; The pedal pulses are 2+ and symmetric. Radial pulses are 2+ and symmetric. (-) Murmur Pulmonary/Chest wall: Effort normal. (-) Respiratory distress, (-) Wheezes, (-) Rales Abd: Soft, Lower Abdominal tenderness worse with touch at mid Danay's point, (- ) Distension, (-) Guarding, (-) Rebound Musculoskeletal: (-) Edema, no pain with heel percussion Lymph: (-) Cervical adenopathy Neuro: Alert, Oriented x3 Psych: Mood and affect Normal Triage Information Reviewed: Yes Vital Signs On Initial Exam: Initial Vitals Temp Pulse Resp BP Pulse Ox 98.6 F 99 20 139/79 95 12/20/18 11:54 12/20/18 11:54 12/20/18 11:54 12/20/18 11:54 12/20/18 11:54 Vital Signs Reviewed: Yes Diagnostics - Vital Signs Vital Signs Temp Pulse Resp BP Pulse Ox 12/20/18 11:54 98.6 F 99 20 139/79 95 - Laboratory Result Diagrams: 12/20/18 12:17 12/20/18 12:17 Lab Statement: Any lab studies that have been ordered have been reviewed, and results considered in the medical decision making process. - CT Abdomen/Pelvis CT CT Interpretation Completed By: Radiologist Summary of CT Findings: Abdomen/Pelvis CT reveals, per radiologist, IMPRESSION: Multiple low density lesions in the liver likely represent hemangiomas and are unchanged since 2009. Normal appendix is identified. Nonobstructing calculi upper pole left kidney. ED Physician has reviewed this report. Re-Evaluation - Re-Evaluation First Eval Re-Evaluation Time: 15:20 Change: Improved Comment: Dr. Renteria discussed discharge plans with patient and patient is agreeable with discharge at this time. Abdominal Pain Fem Course/Dx - Course Course Of Treatment: Patient is here with lower bowel pain worse at McBurney's point. Patient had laboratory performed which is grossly unremarkable except for mild elevated CRP. Patient had a CT scan which showed no abnormality. Patient had no emergent condition and was discharged. - Diagnoses Provider Diagnoses: RLQ abdominal tenderness, Fever Is Visit Related: No Discharge ED - Sign-Out/Discharge Documenting (check all that apply): Patient Departure - dishcarge Patient Received Moderate/Deep Sedation with Procedure: No - Discharge Plan Condition: Stable Disposition: HOME Patient Education Materials: Fever in Adults (ED), Abdominal Pain (ED) Referrals: Adrienne Jaquez MD [Primary Care Provider] - 3 Days Additional Instructions: PLEASE RETURN TO EMERGENCY DEPARTMENT FOR ANY NEW OR WORSENING SYMPTOMS. FOLLOW UP WITH YOUR PRIMARY CARE PHYSICIAN IN 2-3 DAYS. - Billing Disposition and Condition Condition: STABLE Disposition: Home - Attestation Statements Document Initiated by Vianney: Yes Documenting Scribe: Lizzy Aguirre Provider For Whom Vianney is Documenting (Include Credential): Dr. Mike Renteria MD Scribe Attestation: Lizzy Bills scribed for Dr. Mike Renteria MD on 12/20/18 at 1958. Scribe Documentation Reviewed: Yes Provider Attestation: The documentation as recorded by the Lizzy siegel accurately reflects the service I personally performed and the decisions made by me, Dr. Mike Renteria MD Status of Scribe Document: Viewed
[2018-12-20 12:25] LABS: ABS Lymphocytes 0.2 10^3/ul (1.0-4.8); ABS Monocytes 0.5 10^3/ul (0-0.8); ABS Neutrophils 4.9 10^3/ul (1.5-7.7); Eosinophil % 0.3 %; Hematocrit 37 % (35-47); Hemoglobin 12.4 g/dL (12.0-16.0); Mean Corpuscular HGB Conc 33 g/dL (31-36); Mean Corpuscular Hemoglobin 28 pg (27-31); Mean Corpuscular Volume 83 fL (80-97); Mean Platelet Volume 8.1 fL (7.4-10.4); Platelet Count 182 10^3/uL (150-450); Red Blood Count 4.52 10^6 /uL (3.70-4.87); Red Cell Distribution Width 15 % (10-15); White Blood Count 5.6 10^3/uL (3.5-10.8)
[2018-12-20 12:32] LABS: Urine Appearance Cloudy; Urine Bilirubin Negative (Negative); Urine Blood Negative (Negative); Urine Color Yellow; Urine Glucose Negative (Negative); Urine Ketones 1+ (Negative); Urine Nitrite Negative (Negative); Urine Protein Negative (Negative); Urine Specific Gravity 1.016 (1.010-1.030); Urine Urobilinogen Negative (Negative)
[2018-12-20 12:44] LABS: ALT 41 U/L (7-52); AST 43 U/L (13-39); Albumin/Globulin Ratio 1.4 (1-3); Alkaline Phosphatase 66 U/L (34-104); Anion Gap 8 mmol/L (2-11); BUN/Creatinine Ratio 8.5 (8-20); Blood Urea Nitrogen 5 mg/dL (6-24); C Reactive Protein 19.84 mg/L (<8.01); CO2 Carbon Dioxide 23 mmol/L (22-32); Calcium 8.5 mg/dL (8.6-10.3); Chloride 104 mmol/L (101-111); EGFR African American 134.6 (>60); EGFR Non-African American 111.2 (>60); Globulin 2.9 g/dL (2-4); Glucose 105 mg/dL (70-100); Potassium 3.5 mmol/L (3.5-5.0); Sodium 135 mmol/L (135-145); Total Protein 6.9 g/dL (6.4-8.9)
[2018-12-20 12:50] LABS: HCG Pregnancy < 0.60 mIU/mL
--- OUTSIDE RECORDS SUMMARY | 2018-12-20 13:02 | XMS REPORT | Continuity of Care Document ---
:1975 External Reference #:[id number] Author Name Adrienne Jaquez MD (transmitted by agent of provider Melonie Keith) Address [address], [place] [address] Care Team Providers Name Role Phone Rob Brown MD - Neurology Care Team Information Vending Machine Collector Toby Ladd MD - Dermatology Care Team Information Vending Machine Collector [phone] Adrienne Jaquez MD - Internal Medicine Care Team Information Vending Machine Collector Problems Active Problems Provider Date Tobacco user Ryne Montanez M.D. Onset: 02/18/2010 Irritable bowel syndrome Ryne Montanez M.D. Onset: 02/18/2010 Note: since teenage years Neck pain Ryne Montanez M.D. Onset: 02/18/2010 Stress reaction causing mixed disturbance Rasta Zepeda M.D. Onset: of emotion and conduct Multiple sclerosis Ryne Montanez M.D. Onset: 12/02/2010 Note: 2004 with abdominal numbness and tingling; [facility] at first appt added oxybutinin and amantadine (staggered start) Cyst of ovary Ana Wolff M.D. Onset: 12/02/2010 External hordeolum Ryne Montanez M.D. Onset: 10/26/2012 Migraine without aura, not refractory Ryne Montanez M.D. Onset: 2014 Social History Type Date Description Comments Sex Unknown Cigarette Use Pack Years - 18 Cigarette Use Quit - Age 33 Tobacco Use Start: Unknown Restarted smoking 11/2009 Tobacco Use Start: Unknown Quit smoking again 09/2010 Tobacco Use Start: Unknown Quit 11/28/11 Smoking Status Reviewed: 12/20/18 Quit 11/28/11 ETOH Use Occasionally consumes 1-2 per week alcohol Tobacco Use Start: Unknown End: Patient is a former Unknown smoker Recreational Drug Use Denies Drug Use Exercise Type/Frequency Exercises regularly 5 days per week Allergies, Adverse Reactions, Alerts Description No Known Drug Allergies Medications Active Medications SIG Qnty Indications Ordering Provider Date Amantadine HCL 1 tablet by Unknown 10/30/2018 100mg mouth twice a Tablets day Oxybutynin Chloride ER 1 by mouth at Unknown 10/27/2018 bedtime 10mg Tablets ER 24HR Amitriptyline HCL take 3 tablets 90tabs G43.009 Ryne Montanez, 2014 10mg at bedtime M.D. Tablets Aubagio Unknown 05/09/2013 14mg Tablets Dandelion Root 1 tab po daily Unknown 520mg Capsules Ginko Biloba 1 tab po daily Unknown Probiotic 1 by mouth every 14caps Unknown Capsules day Multivitamins 1 by mouth every 30caps Unknown Capsules day Vitamin C 1 by mouth every Unknown 1000mg Tablets day Vitamin D 1 tab po daily Unknown History Medications Suprep Bowel Prep Kit take according to 354ml Juan Snell 11/02/2018 - the instructions MD Uri 12/04/2018 17.5-3.13-1.6GM/177ML you received, the Solution afternoon before and morning of your procedure. Immunizations CPT Code Status Date Vaccine Lot # [id number] Given 02/03/2018 Influenza Virus Vaccine, Quadrivalent, Split, Preservative Free [id number] Given 05/15/2011 Measles Mumps And Rubella MMR [id number] Vital Signs Date Vital Result Comment 12/20/2018 10:39am Height 66 inches 5'6" Weight 144.00 lb Heart Rate 128 /min BP Systolic Sitting 144 mmHg BP Diastolic Sitting 89 mmHg Body Temperature 102.0 F O2 % BldC Oximetry 98 % BMI (Body Mass Index) 23.2 kg/m2 10/31/2018 1:24pm Height 66 inches 5'6" Weight 148.00 lb Heart Rate 77 /min BP Systolic 118 mmHg BP Diastolic 82 mmHg O2 % BldC Oximetry 100 % BMI (Body Mass Index) 23.9 kg/m2 Results Test Date Facility Test Result H/L Range Note Laboratory test 07/04/2018 [facility] Cytology SEE RESULT [address] [place], [place] [id number] [phone] 1 SEE RESULT BELOW Name: GORGE NEW : [address]: Celia EDWARDS Acct: [id number] Unit: [id number] AGE: 42 Location: [facility] Re07/04/18 SEX: F Status: REG REF SPEC: [id number] YESENIA: 07/04/18-[address]: Celia Barr NP, CNM REQ: [id number] RECD: 07/04/18 STATUS: SOUT _ ORDERED: TP IMAGE ANALYS, HPV/Thin Prep COMMENTS: [id number] Negative for Intraepithelial lesion or Malignancy Date Time Test Result Flag (u) Normal Range 07/04/18 1550 @ HPV RNA Negative Negative @ @ The high-risk HPV types detected by the assay include: 16, @ 18, 31, 33, 35, 39, 45, 51, 52, 56, 58, 59, 66, and 68. A. Ectocervical/Endocervical Specimen Adequacy: Satisfactory of evaluation Transformation zone component identified Patient Information: HPV: High risk HPV RNA testing regardless of pap results. Actual Specimen Date: 07/04/18 ?: N Post Menopausal?: N Hysterectomy?: N Signed by and Reported on: LAYNE Lopez (ASCP) [id number] This Pap test was evaluated with the assistance of the [employer] System. Due to cytologic findings at the steaming cabinet tender microscope, comprehensive manual rescreening by a [employer] Firer/Fireman may be required. The Pap Smear is a screening test designed to aid in the detection of premalignant and malignant conditions of the uterine cervix. It is not a diagnostic procedure and should not be used as the sole means of detecting cervical cancer. Both false- positive and false- negative reports do occur. Depending on your risk status, a Pap smear should be obtained and evaluated every 1-3 years. END OF REPORT DEPARTMENT OF PATHOLOGY, [address] [place] [address] John Burrows M.D. Director [facility] # [id number] Procedures Date Code Description Status 07/20/2018 [id number] Mammogram Completed 06/03/2015 [id number] Mammogram Completed Medical Devices Description No Information Available Encounters Type Date Location Provider Dx Diagnosis Office Visit 10/31/2018 [facility] Gastroenterology Juan Snell K62.5 Hemorrhage of 1:15p MD Uri anus and rectum R15.2 Fecal urgency K58.0 Irritable bowel syndrome with diarrhea Office Visit 09/28/2018 1:00p [facility] Internal Adrienne Jaquez, K62.5 Hemorrhage of anus Medicine [facility] and rectum Office Visit 09/05/2018 5:00p [facility] Internal Adrienne Jaquez, G35 Multiple sclerosis Medicine - [facility] N39.41 Urge incontinence R15.2 Fecal urgency Assessments Date Code Description Provider 12/20/2018 R50.9 Fever, unspecified Adrienne Jaquez MD 10/31/2018 K62.5 Hemorrhage of anus and rectum Juan Grewal MD 10/31/2018 R15.2 Fecal urgency Juan Grewal MD 10/31/2018 K58.0 Irritable bowel syndrome with diarrhea Juan Grewal MD 09/28/2018 K62.5 Hemorrhage of anus and rectum Adrienne Jaquez MD 09/05/2018 G35 Multiple sclerosis Adrienne Jaquez MD 09/05/2018 N39.41 Urge incontinence Adrienne Jaquez MD 09/05/2018 R15.2 Fecal urgency Adrienne Jaquez MD 07/04/2018 Z01.419 Encounter for gynecological examination Igor Amaya (general) (routine) 07/04/2018 Z12.31 Encounter for screening mammogram for AMAYA Amaya malignant neoplasm of 07/04/2018 Z11.51 Encounter for screening for human Igor Amaya papillomavirus (HPV) Plan of Treatment 12/20/2018 - Adrienne Jaquez MDR50.9 Fever, unspecifiedNew Labs:CBC Auto Diff, Ordered: 12/20/18Comp Metabolic Panel, Ordered: 12/20/18 Functional Status Description No Information Available Mental Status Description No Information Available Referrals Refer to Reason for Referral Status Appt Date Juan Grewal MD Sent 10/31/2018 [address] [place] [address] [phone] [facility] Multiple refaxed referral to [phone] fax Sent 2018 [facility] [address] [place] [address] [phone]
--- OUTSIDE RECORDS SUMMARY | 2018-12-20 13:03 | XMS REPORT | Continuity of Care Document ---
:1975 External Reference #:[id number] Author Name Josee To Care Team Providers Name Role Phone Adrienne Jaquez MD Primary Care Physician Unavailable Payers Date Identification Numbers Payment Provider Subscriber Policy Number: [id number] BS Facets Kasey Chaparro PayID: [id number] [address] [address] [place] [address] Problems Active Problems Provider Date Tobacco user Ryne Montanez M.D. Onset: 02/18/2010 Irritable bowel syndrome Ryne Montanez M.D. Onset: 02/18/2010 Neck pain Ryne Montanez M.D. Onset: 02/18/2010 Stress reaction causing mixed disturbance Rasta Zepeda M.D. Onset: of emotion and conduct Multiple sclerosis Ryne Montanez M.D. Onset: 12/02/2010 Note: 2005 with abdominal numbness and tingling; [facility] at first appt added oxybutinin and amantadine (staggered start) Cyst of ovary Ana Wolff M.D. Onset: 12/02/2010 External hordeolum Ryne Montanez M.D. Onset: 10/26/2012 Migraine without aura, not refractory Ryne Montanez M.D. Onset: 2014 Family History Date Family Member(s) Observation Comments General Colon Cancer Maternal grandmother had colon cancer at about age 80 : (age Father due to Heart of heart attack 38 Years) Disease Mother 60 as of 07/13/2009 : (2018) Mother due to Lung (age 68 Years) Cancer First Brother 50 as of 07/13/2009 First Sister 41 as of 07/13/2009 Second Sister 38 as of 07/13/2009 Paternal Grandmother due to Stroke () Maternal Grandfather due to () Pancreatic Cancer Maternal Grandmother due to Colon () Cancer Social History Type Date Description Comments Sex Unknown Marital Status Lives With Spouse Lives With Son 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 01/31/2018 Tablets Triamcinolone every day as 80gm L23.7 Elver Espino 09/13/2015 - Acetonide needed Luisa Etienne,FACP 02/23/2017 0.1% Ointment Medrol medrol dosepack 1pak L23.7 Elver Espino 09/13/2015 - 4mg Tablets as directed Luisa Etienne,FACP 09/23/2015 (patient will call if she wants filled) Azithromycin 2 tab today and 6tabs 784.1 Ryne Rodríguezannalisa, 10/24/2014 - 250mg then 1tab daily M.D. 05/03/2015 Tablets Sumatriptan Succinate use at onset of 10tabs 346.10 Ryne Tarik, - head ache,july M.D. 02/23/2017 100mg Tablets repeat after 2h as needed Azithromycin 2 tab today and 6tabs 466.0 Ryne Tarik, 05/01/2014 - 250mg then 1tab daily M.D. 06/05/2014 Tablets Azithromycin 2 tab today and 6tabs 466.0 Ryne Tarik, 05/01/2014 - 250mg then 1tab daily M.D. 06/05/2014 Tablets Copaxone inject sq 3x 36units Rob Brown, 02/06/2014 - 40mg/ml Soln weekly M.D. 01/08/2017 Prefill Syringe No Active Medications Unknown 09/08/2013 - 12/26/2013 Aubagio 1 po qd 30tabs Rob Brown, 11/30/2012 - 7mg Tablets M.D. 09/08/2013 Amoxicillin 1 cap bid for 20caps 461.1 Carolann Lira, 02/26/2012 - 500mg 10 days N.P. 10/26/2012 Capsules Nasal Saline 2 sprays in 1ml 461.1 Carolann Lira, 02/26/2012 - 0.65% each nostril 5 N.P. 10/26/2012 Solution times a day Bactrim DS twice daily for 6tabs 599.0 Carolann Lira, 12/10/2011 - 800-160mg 3 days N.P. 02/26/2012 Tablets Avonex 30 mcg im 4units Rob Brown, 05/25/2011 - 30mcg/0.5ML Kit weekly M.D. 11/30/2012 Chantix Starter Pack as directed 1tabs 305.1 Ryne Montanez, 05/28/2010 - M.D. 12/02/2010 Tablets Asa 1 po qd Ryne Montanez, 03/25/2010 - 81mg M.D. 05/28/2010 Amoxicillin/Clavulana 1 po bid 20tabs 461.9 Ryne Montanez, 02/11/2010 - te Potassium M.D. 02/18/2010 875-125mg Tablets Amitriptyline HCL Ryne Montanez, 12/04/2009 - M.D. 02/26/2012 Powder Nicoderm CQ once daily 30units 305.1 Ryne Montanez, 12/04/2009 - 14mg/24HR M.D. 02/18/2010 Patches 24HR None Unknown - 03/11/2010 Copaxone sc qd Unknown - 20mg/ml Kit 12/10/2011 Immunizations CPT Code Status Date Vaccine Lot # [id number] Given 02/03/2018 Influenza Virus Vaccine, Quadrivalent, Split, Preservative Free [id number] Given 05/15/2011 Measles Mumps And Rubella MMR [id number] Vital Signs Date Vital Result Comment 10/31/2018 1:24pm Height 66 inches 5'6" Weight 148.00 lb Heart Rate 77 /min BP Systolic 118 mmHg BP Diastolic 82 mmHg O2 % BldC Oximetry 100 % BMI (Body Mass Index) 23.9 kg/m2 09/28/2018 1:11pm Height 66 inches 5'6" Weight 142.00 lb Heart Rate 78 /min BP Systolic Sitting 130 mmHg BP Diastolic Sitting 80 mmHg Body Temperature 98.6 F O2 % BldC Oximetry 99 % BMI (Body Mass Index) 22.9 kg/m2 09/05/2018 4:35pm Height 66 inches 5'6" Weight 145.00 lb Heart Rate 68 /min BP Systolic Sitting 120 mmHg BP Diastolic Sitting 77 mmHg Body Temperature 97.1 F O2 % BldC Oximetry 98 % BMI (Body Mass Index) 23.4 kg/m2 07/04/2018 3:06pm Height 66 inches 5'6" Weight 145.38 lb Heart Rate 80 /min BP Systolic 114 mmHg BP Diastolic 71 mmHg O2 % BldC Oximetry 100 % BMI (Body Mass Index) 23.5 kg/m2 Last Menstrual Period [id number] 01/31/2018 9:24am Height 66 inches 5'6" Weight 143.50 lb Heart Rate 79 /min BP Systolic 110 mmHg BP Diastolic 82 mmHg Body Temperature 98.3 F O2 % BldC Oximetry 99 % BMI (Body Mass Index) 23.2 kg/m2 09/07/2017 3:47pm Height 66 inches 5'6" Weight 157.00 lb Heart Rate 95 /min BP Systolic 118 mmHg BP Diastolic 80 mmHg O2 % BldC Oximetry 98 % BMI (Body Mass Index) 25.3 kg/m2 02/23/2017 10:31am Weight 145.00 lb Heart Rate 75 /min BP Systolic Sitting 118 mmHg BP Diastolic Sitting 72 mmHg Body Temperature 97.1 F O2 % BldC Oximetry 98 % 01/08/2017 2:59pm Height 66 inches 5'6" Weight 143.12 lb Heart Rate 71 /min BP Systolic 106 mmHg BP Diastolic 74 mmHg Body Temperature 97.2 F O2 % BldC Oximetry 96 % BMI (Body Mass Index) 23.1 kg/m2 09/13/2015 4:38pm Height 66 inches 5'6" Weight 151.38 lb BP Systolic 70 mmHg BP Systolic Standing 110 mmHg BP Diastolic Standing 78 mmHg Body Temperature 96.5 F O2 % BldC Oximetry 96 % BMI (Body Mass Index) 24.4 kg/m2 05/03/2015 2:12pm Height 66 inches 5'6" Weight 146.38 lb Heart Rate 88 /min BP Systolic Sitting 118 mmHg BP Diastolic Sitting 72 mmHg Body Temperature 96.4 F O2 % BldC Oximetry 98 % BMI (Body Mass Index) 23.6 kg/m2 10/24/2014 11:26am Height 66 inches 5'6" Weight 143.00 lb Heart Rate 82 /min BP Systolic Sitting 100 mmHg BP Diastolic Sitting 60 mmHg Body Temperature 98.9 F O2 % BldC Oximetry 94 % BMI (Body Mass Index) 23.1 kg/m2 07/12/2014 10:52am Height 66 inches 5'6" Weight 149.00 lb Heart Rate 72 /min BP Systolic Sitting 124 mmHg BP Diastolic Sitting 78 mmHg Respiratory Rate 12 /min BMI (Body Mass Index) 24.0 kg/m2 06/14/2014 4:03pm Height 66 inches 5'6" Weight 149.50 lb Heart Rate 91 /min BP Systolic Sitting 108 mmHg BP Diastolic Sitting 70 mmHg Pain Level 6 O2 % BldC Oximetry 95 % BMI (Body Mass Index) 24.1 kg/m2 06/06/2014 2:47pm Height 66 inches 5'6" Weight 146.00 lb Heart Rate 68 /min BP Systolic Sitting 116 mmHg BP Diastolic Sitting 64 mmHg Respiratory Rate 16 /min BMI (Body Mass Index) 23.6 kg/m2 05/01/2014 11:27am Height 66 inches 5'6" Weight 148.50 lb Heart Rate 88 /min BP Systolic Sitting 110 mmHg BP Diastolic Sitting 60 mmHg Body Temperature 96.5 F O2 % BldC Oximetry 99 % BMI (Body Mass Index) 24.0 kg/m2 02/06/2014 10:51am Height 66 inches 5'6" Weight 138.00 lb Heart Rate 72 /min BP Systolic Sitting 104 mmHg BP Diastolic Sitting 82 mmHg Respiratory Rate 16 /min BMI (Body Mass Index) 22.3 kg/m2 12/26/2013 4:08pm Height 66 inches 5'6" Weight 143.00 lb Heart Rate 64 /min BP Systolic Sitting 126 mmHg BP Diastolic Sitting 80 mmHg Respiratory Rate 16 /min BMI (Body Mass Index) 23.1 kg/m2 10/17/2013 1:26pm Weight 143.00 lb Heart Rate 70 /min BP Systolic Sitting 110 mmHg BP Diastolic Sitting 110 mmHg 09/08/2013 3:00pm Height 66 inches 5'6" Weight 144.00 lb Heart Rate 74 /min BP Systolic Sitting 110 mmHg BP Diastolic Sitting 70 mmHg BMI (Body Mass Index) 23.2 kg/m2 10/26/2012 2:57pm Height 66 inches 5'6" Weight 138.00 lb Heart Rate 59 /min BP Systolic Sitting 116 mmHg BP Diastolic Sitting 80 mmHg BMI (Body Mass Index) 22.3 kg/m2 02/26/2012 2:16pm Height 66 inches 5'6" Weight 139.00 lb Heart Rate 92 /min BP Systolic 100 mmHg BP Diastolic 80 mmHg Body Temperature 98.7 F BMI (Body Mass Index) 22.4 kg/m2 12/10/2011 10:03am Weight 146.00 lb Heart Rate 88 /min BP Systolic Sitting 108 mmHg BP Diastolic Sitting 70 mmHg Body Temperature 98.5 F lt ear 12/02/2010 9:01am Weight 146.00 lb Heart Rate 68 /min BP Systolic Sitting 112 mmHg BP Diastolic Sitting 68 mmHg 05/28/2010 9:11am Weight 136.00 lb Heart Rate 76 /min BP Systolic 116 mmHg BP Diastolic 70 mmHg 03/26/2010 7:59am Heart Rate 80 /min BP Systolic 114 mmHg BP Diastolic 80 mmHg 03/11/2010 9:42am Weight 135.00 lb Heart Rate 80 /min BP Systolic 108 mmHg BP Diastolic 78 mmHg 02/18/2010 10:36am Weight 139.00 lb Heart Rate 90 /min BP Systolic Sitting 120 mmHg BP Diastolic Sitting 80 mmHg 02/11/2010 11:29am Weight 142.00 lb Heart Rate 84 /min BP Systolic Sitting 116 mmHg BP Diastolic Sitting 70 mmHg Body Temperature 96.2 F Tympanically 12/04/2009 4:02pm Weight 142.00 lb Heart Rate 93 /min BP Systolic Sitting 116 mmHg BP Diastolic Sitting 68 mmHg 10/03/2009 3:07pm Weight 146.00 lb Heart Rate 76 /min BP Systolic Sitting 90 mmHg BP Diastolic Sitting 60 mmHg 07/31/2009 2:27pm Heart Rate 78 /min BP Systolic Sitting 118 mmHg BP Diastolic Sitting 64 mmHg 07/12/2009 1:18pm Height 65.75 inches 5'5.75" Weight 142.00 lb Heart Rate 92 /min BP Systolic 120 mmHg BP Diastolic 60 mmHg O2 % BldC Oximetry 93 % BMI (Body Mass Index) 23.1 kg/m2 Results Test Date Facility Test Result H/L Range Note Laboratory test 07/04/2018 [facility] Cytology SEE RESULT [address] [place] [address] [phone] Urinalysis Profile 09/07/2017 [facility] Urine Color Yellow [address] [place] [address] [phone] Urine Appearance Clear Urine Specific Alliance 1.013 Normal 1.010-1.030 Urine pH 7.0 Normal 5-9 Urine Urobilinogen Negative Negative Urine Ketones Negative Negative Urine Protein Negative Negative Urine Leukocytes Negative Negative Urine Blood 3+ Abnormal Negative Urine Nitrite Negative Negative Urine Bilirubin Negative Negative Urine Glucose Negative Negative Urine White Blood Cell Absent Absent Urine Red Blood Cell 3+(>10/hpf) Abnormal Absent Urine Bacteria 1+ Abnormal Absent Urine Squamous Epithelial Cell Present Abnormal Absent Urinalysis Profile 09/07/2017 [facility] Urine Color Yellow [address] [place] [address] [phone] Urine Appearance Cloudy Urine Specific Alliance 1.012 Normal 1.010-1.030 Urine pH 7.0 Normal 5-9 Urine Urobilinogen Negative Negative Urine Ketones Negative Negative Urine Protein Negative Negative Urine Leukocytes Negative Negative Urine Blood 2+ Abnormal Negative Urine Nitrite Negative Negative Urine Bilirubin Negative Negative Urine Glucose Negative Negative Urine White Blood Cell Absent Absent Urine Red Blood Cell 3+(>10/hpf) Abnormal Absent Urine Bacteria Absent Absent Urine Squamous Epithelial Cell Present Abnormal Absent Urine Culture And 09/07/2017 [facility] Urine SEE RESULT [address] [place] [address] [phone] CBC Auto Diff 09/07/2017 [facility] White Blood 6.7 10^3/uL Normal 3.5-[address] Count 0.8 [place] [address] [phone] Red Blood Count 4.68 10^6/uL Normal 4.00-5.40 Hemoglobin 12.7 g/dL Normal 12.0-16.0 Hematocrit 39 % Normal 35-47 Mean Corpuscular Volume 83 fL Normal 80-97 Mean Corpuscular Hemoglobin 27 pg Normal 27-31 Mean Corpuscular HGB Conc 33 g/dL Normal 31-36 Red Cell Distribution Width 15 % Normal 10.5-15 Platelet Count 287 10^3/uL Normal 150-450 Mean Platelet Volume 7.8 um3 Normal 7.4-10.4 Abs Neutrophils 4.3 10^3/uL Normal 1.5-7.7 Abs Lymphocytes 1.6 10^3/uL Normal 1.0-4.8 Abs Monocytes 0.4 10^3/uL Normal 0-0.8 Abs Eosinophils 0.2 10^3/uL Normal 0-0.6 Abs Basophils 0.1 10^3/uL Normal 0-0.2 Abs Nucleated RBC 0 10^3/uL Granulocyte % 65.2 % Normal 38-83 Lymphocyte % 24.6 % Low 25-47 Monocyte % 5.8 % Normal 0-7 Eosinophil % 3.1 % Normal 0-6 Basophil % 1.3 % Normal 0-2 Nucleated Red Blood Cells % 0.1 Comp Metabolic Panel 09/07/2017 [facility] Sodium 138 mmol/L Low 139-[address] [place] [address] [phone] Potassium 4.3 mmol/L Normal 3.5-5.0 Chloride 105 mmol/L Normal 101-111 Co2 Carbon Dioxide 28 mmol/L Normal 22-32 Anion Gap 5 mmol/L Normal 2-11 Glucose 96 mg/dL Normal 70-100 Blood Urea Nitrogen 10 mg/dL Normal 6-24 Creatinine 0.74 mg/dL Normal 0.51-0.95 BUN/Creatinine Ratio 13.5 Normal 8-20 Calcium 9.4 mg/dL Normal 8.6-10.3 Total Protein 7.3 g/dL Normal 6.4-8.9 Albumin 4.4 g/dL Normal 3.2-5.2 Globulin 2.9 g/dL Normal 2-4 Albumin/Globulin Ratio 1.5 Normal 1-3 Total Bilirubin 0.30 mg/dL Normal 0.2-1.0 Alkaline Phosphatase 42 U/L Normal 34-104 Alt 11 U/L Normal 7-52 Ast 15 U/L Normal 13-39 Egfr Non- 86.1 >60 Egfr 110.7 >60 4 Laboratory test 09/07/2017 [facility] Lipase 19 U/L Normal 11.0-82.[address] [place] [address] [phone] C Reactive Protein < 1.00 mg/L Normal < 5.00 5 HCG < 0.60 mIU/mL 6 Laboratory test 02/23/2017 [facility] Strep positive finding Lipid Profile 01/01/2017 [facility] Triglycerides 56 mg/dL Normal 7 (Trig/Chol/HDL) [address] [place] [address] [phone] Cholesterol 172 mg/dL Normal 8 HDL Cholesterol 68.9 mg/dL Normal 9 LDL Cholesterol 92 mg/dL Normal 10 Laboratory test 01/01/2017 [facility] Glucose 84 mg/dL Normal 70-[address] [place] [address] [phone] TSH (Thyroid Stim Horm) 1.37 mcIU/mL Normal 0.34-5.60 Free T4 (Free Thyroxine) 0.67 ng/dL Normal 0.61-1.12 Laboratory test 10/24/2014 [facility] A negative finding Strep Laboratory test 10/24/2014 [facility] Culture Throat SEE RESULT [address] [place] [address] [phone] Laboratory test 06/14/2014 [facility] Erythrocyte Sed 9 mm/Hr Normal 0-[address] Rate [place], [place] [id number] [phone] Comp Metabolic 12/01/2012 [facility] Sodium 140 mmol/L 133-[address] [place] [address] [phone] Potassium 4.9 mmol/L 3.5-5.0 Chloride 109 mmol/L [...] Egfr Non- 112.5 >60 Egfr 144.7 >60 12 CBC With 12/01/2012 [facility] White Blood 3.9 10^3/uL Low 4.8 -10.8 Manual Diff [address] [place] [address] [phone] Red Blood Count 4.67 10^6/uL 4.0-5.4 Hemoglobin [...] RBC Morphology Normal Normal Urinalysis W/Microscopic 12/10/2011 [facility] Ua Color YELLOW Yellow [address] [place] [address] [phone] Appearance-Urine CLEAR Clear Specific Alliance-Ur 1.010 1.010-1.030 Esterase-Urine 1+ Abnormal Negative Nitrite NEGATIVE Negative Qkmilzndeiky-Pb-DJB NEGATIVE Negative Protein-Urine NEGATIVE Negative PH-Urine 8.0 5-9 Blood-Urine NEGATIVE Negative Ketones-Urine NEGATIVE Negative Bilirubin-Ur NEGATIVE Negative Glucose-Urine NEGATIVE Negative WBC-Urine 5-10 Abnormal 0-5 RBC-Urine NONE SEEN 0-2 Epith Cells-Ur MODERATE None Bacteria-Urine TRACE None Urine Culture 12/10/2011 [facility] M <SEE 13 & Sensitivi [address] NOTE> [place] [address] [phone] Ua Routine 12/10/2011 [facility] Ua Specific 1.000 Alliance Ua PH 8.5 Ua Color yellow Ua Appera clear Ua WBC trace Ua Protein neg Ua Glucose neg Ua Ketones neg Ua Bilirubin small Ua Urobilinogen neg Ua Nitrite neg Ua Occult Blood trace CBC With Manual 07/23/2011 [facility] White Blood 5.9 CUMM 4.8-10.[address] [place] [address] [phone] Red Cell Count 4.31 CUMM 4.2-5.4 Hemoglobin [...] Absolute Neutrophil Count 3.30 RBC Morphology NORMAL Comp Metabolic Panel 07/23/2011 [facility] Sodium 133 mmol/L Low 135-[address] [place] [address] [phone] Potassium 4.0 mmol/L 3.5-5.0 Chloride 102 mmol/L 101-111 Co2 (Carbon Dioxide) 28.0 mmol/L 22-32 Anion Gap 3.0 mmol/L 2-11 14 Glucose 87 mg/dL 70-100 BUN 6 mg/dL 6-24 Creatinine 0.7 mg/dL 0.50-1.40 One Over Creatinine 1.42 BUN/Creatinine Ratio 8.6 8-20 Calcium 8.7 mg/dL 8.1-9.9 Total Protein 6.8 GM/DL 6.2-8.1 Albumin 3.7 GM/DL 3.6-5.4 Globulin 3.1 GM/DL 2-4 Albumin/Globulin Ratio 1.2 1-3 Bilirubin Total 0.6 mg/dL 0.4-1.5 15 Alkaline Phosphatase 63 U/L 30-110 Alt (SGPT) 21 U/L 14-54 Ast (Sgot) 21 U/L 12-42 eGFR Non- 94.7 > 60 eGFR 121.8 > 60 16 Laboratory test finding 05/11/2011 [facility] Mumps Igg Negative () [address] [place] [address] [phone] Rubeola Igg AB Positive () 18 Rubella Screen EQUIVOCAL Immune 19 Laboratory test 04/14/2010 [facility] Erythrocyte Sed 8 MM/HR 0-[address] [place] [address] [phone] Angiotensin Converting Enzyme 18 U/L 8-53 20 Lyme Disease Serology Negative Negative 21 Jenn (Antinuclear 04/14/2010 [facility] Antinuclear AB NEGATIVE Negative Antibodies) [address] [place] [address] [phone] Ssa/SSB 04/14/2010 [facility] Ssa NEGATIVE Negative [address] [place] [address] [phone] SSB NEGATIVE Negative Comp Metabolic Panel 02/18/2010 [facility] Sodium 135 mmol/L 135-[address] [place] [address] [phone] Potassium 4.0 mmol/L 3.5-5.0 Chloride 103 mmol/L 101-111 Co2 (Carbon Dioxide) 26.0 mmol/L 22-32 Anion Gap 6.0 mmol/L 2-11 22 Glucose 92 mg/dL 70-100 23 BUN 4 mg/dL Low 6-24 Creatinine 0.70 mg/dL 0.50-1.40 One Over Creatinine 1.40 BUN/Creatinine Ratio 5.7 Low 8-20 Calcium 9.3 mg/dL 8.1-9.9 Total Protein 7.4 GM/DL 6.2-8.1 Albumin 4.4 GM/DL 3.6-5.4 Globulin 3.0 GM/DL 2-4 Albumin/Globulin Ratio 1.5 1-3 Bilirubin Total 0.7 mg/dL 0.4-1.5 24 Alkaline Phosphatase 45 U/L 30-110 Alt (SGPT) 12 U/L Low 14-54 Ast (Sgot) 16 U/L 12-42 eGFR Non- 101.2 > 60 eGFR 122.5 > 60 25 Laboratory test 02/18/2010 [facility] TSH 1.18 MIU/ML 0.34- 5.[address] [place] [address] [phone] Vitamin B12 And 02/18/2010 [facility] Vitamin B12 355 pg/mL 180-914 Folate Serum [address] [place] [address] [phone] Folic Acid 5.7 NG/ML 2-16 CBC With 02/18/2010 [facility] White Blood 6.8 CUMM 4.8-10.8 Electronic Diff [address] [place] [address] [phone] Red Cell Count 4.66 CUMM 4.2-5.4 Hemoglobin [...] Eosinophils 0 0-0.6 Abs Basophils 0.1 0-0.2 26 1 SEE RESULT BELOW Name: SHAQKASEY Anisha : [address]: Celia Barr NP, CNM Acct: [id number] Unit: [id number] AGE: 42 Location: [facility] Re07/04/18 SEX: F Status: REG REF SPEC: [id number] YESENIA: 07/04/18-[address] [facility] [address]: Celia EDWARDS REQ: [id number] RECD: 07/04/18-1809 STATUS: SOUT _ ORDERED: TP IMAGE ANALYS, HPV/Thin Prep COMMENTS: [id number] Negative for Intraepithelial lesion or Malignancy Date [...] by and Reported on: LAYNE Lopez (ASCP) 1643 This Pap test was evaluated with the assistance of the VusionPrep Test Imaging System. Due to cytologic findings at the gate technician microscope, comprehensive manual rescreening by a [employer] Sales Representative may be required. The Pap Smear is [...] years. END OF REPORT DEPARTMENT OF PATHOLOGY, [address] [place] [address] John Burrows M.D. Director [facility] # [id number] SEE RESULT BELOW Name: KASEY CHAPARRO : [address]: Carlito Todd MD Acct: [id number] Unit: [id number] AGE: 41 Location: ED Re09/07/17 SEX: F Status: DEP ER SPEC: [id number] YESENIA: 09/07/[address]: Aida DUNN REQ: [id number] RECD: 09/07/17 STATUS: ALLEN BOLDEN DR: [facility] Ryne Montanez MD _ SOURCE: URINE SPDESC: ORDERED: Urine Culture Procedure Result Reported Site Urine Culture Final 09/09/17- 0911 ML No growth of clinically significant organisms * ML - Main Lab . END OF REPORT DEPARTMENT OF PATHOLOGY, [address] [place] [address] John Burrows M.D. Director [facility] # [id number] 4 Because ethnic data is not always readily [...] 15-29 5 Kidney failure <15 (or dialysis) 5 Acute inflammation: >10.00 6 <5.0 Negative 5.0 - 25.0 Indeterminate (Repeat testing recommended after 72 hours) >25.0 Positive Perimenopausal women can display HCG levels of up to 20 mIU/mL 7 Desirable <150 Borderline high 150-199 High 200-499 Very High >500 8 Desirable <200 Borderline high 200-239 High >239 9 Low <40 Desirable: 40-60 High: >60 10 Desirable: <100 mg/dL Near Optimal: 100-129 mg/dL Borderline High: 130-159 mg/dL High: 160-189 mg/dL Very High: >189 mg/dL 11 SEE RESULT BELOW Name: KASEY CHAPARRO : [address]: Ryne Montanez MD Acct: [id number] Unit: [id number] AGE: 38 Location: [facility] Re10/24/14 SEX: F Status: REG REF SPEC: [id number] YESENIA: 10/24/14-[address]: Ryne Montanez MD REQ: [id number] RECD: 10/24/14 STATUS: COMP _ SOURCE: THROAT [...] vancomycin, resistant strains havenot been recognized. (CLSI R928-B49;p.66) Positive isolates will be saved for one week. Please call the Microbiology Laboratory if further susceptibility testing is needed. * ML - MAIN LAB ([facility]) . END OF REPORT * ML = Testing performed at Main Lab DEPARTMENT OF PATHOLOGY, [address] [place] [address] John Burrows M.D. Director [facility] # [id number] 12 Because ethnic data is not always readily [...] 15-29 5 Kidney failure <15 (or dialysis) 13 RUN DATE: 12/13/11 [facility] NMI LIVE PAGE 1 RUN TIME: 936 Specimen Inquiry RUN USER: INTERFACE Name: KASEY VALENTIN Status: REG REF Re12/10/11 Age/Sex: 35/F Unit#: [id number] Location: [facility] : [birth year] SPEC #: [id number] YESENIA: 12/10/11-1015 STATUS: COMP REQ #: [id number] RECD: 12/10/11-[address]: Soraya WOLFE,Carolann Go SOURCE: URINE ENTR: 12/10/11-[address]: [facility]: ORDERED: URINE C S QUERIES: MEDENT REQUISITION # [id number] SPECIMEN DESCRIPTION: URINE, RANDOM Procedure Result Verified Site > URINE CULTURE SENSITIVI Final 12/13/11- 0937 ML Organism 1 STAPHYLOCOCCUS SAPROPHYTICUS Routine testing of urine isolates of S. saprophyticus is not advised, because infections respond to concentrations achieved in urine of antimicrobial agents commonly used to treat acute, uncomplicated urinary tract infections (e.g. nitrofurantoin, trimethoprim+/- sulfamethoxazole, or a fluoroquinolone). N[facility] March 2001 COLONY COUNT >100,000 ORGANISMS/ML (MANY) - [facility] State Permit #[id number] [address] [place] [id number] DEPARTMENT OF PATHOLOGY, [address] [place] [address] [facility] Permit #[id number] John Burrows M.D. Director Violetta Carey M.D. Owner Professional Engineer 14 Anion gap measurement may be of limited value in the presence of any alkalosis, especially in a combined acid base disorder. . 15 A metabolite of Naproxen, O-desmethylnaproxen, has been shown to interfere with the Jendrassik-Krystle method for measuring total bilirubin. Samples from patients who have taken Naproxen have shown spurious elevation in total bilirubin levels. 16 Because ethnic data is not always readily [...] 15-29 5 Kidney failure <15 (or dialysis) 17 -- REFERENCE VALUE -- Negative 18 -- REFERENCE VALUE -- Negative Test Performed by: [facility] Dpt of Lab Med and Pathology [address] [place] [address] Configuration Consultant: Rui Pinto III, M.D. 19 EQUIVOCAL;SUGGEST RETEST WITH ANOTHER SAMPLE IN 14-21 DAYS. 20 The use of angiotensin converting enzyme (CLARE)-inhibiting antihypertensive drugs will cause decreased CLARE values. Test Performed by: [facility] Dpt of Lab Med and Pathology [address] [place] [address] Configuration Consultant: Rui Pinto III, M.D. 21 Serologic response to B. burgdorferi infection is not detected, but cannot rule out early infection during which low or undetectable antibody levels to B. burgdorferi may be present. If clinically indicated, a new serum specimen should be submitted in 7-14 days. Test Performed by: [facility] D[facility] of Lab Med and Pathology [address] [place], [place] [address] Configuration Consultant: Rui Pinto III, M.D. 22 Anion gap measurement may be of limited value in the presence of any alkalosis, especially in a combined acid base disorder. . 23 Note change in reference range as of 11/17/07. The change was based on recommendations from the [place] [employer]. 24 A metabolite of Naproxen, O-desmethylnaproxen, has been shown to interfere with the Jendrassik-Caruthers method for measuring total bilirubin. Samples from patients who have taken Naproxen have shown spurious elevation in total bilirubin levels. 25 Because ethnic data is not always readily [...] 15-29 5 Kidney failure <15 (or dialysis) 26 Lymphopenia % Procedures Date Code Description Status 07/20/2018 [id number] Mammogram Completed 06/03/2015 [id number] Mammogram Completed 07/26/2009 09795 Treadmill Interp/Report Only Completed 07/26/2009 61000 Stress Test Supervsn W/Out I/R Completed 07/12/2009 28381 Noninvasive Ear Or Pulse Oximetry For Oxygen Saturation Completed 07/12/2009 80719 EKG Tracing & Interpretation Completed Encounters Type Date Location Provider Dx Diagnosis Office Visit 09/28/2018 [facility] Adrienne Jaquez MD K62.5 [facility] 09/05/2018 [facility] Adrienne Jaquez MD G35 Multiple sclerosis 5:00p Medicine - [facility] N39.41 Urge incontinence R15.2 Fecal urgency Office Visit 02/09/2018 [facility] Toby Ladd, D22.5 Melanocytic nevi 8:10a MD of trunk Office Visit 01/31/2018 [facility] Ryne L98.9 Disorder of the 9:40a Medicine - [facility], skin and R M.D. subcutaneous tissue, unspecified Office Visit 09/07/2017 [facility] Ry[place] R31.9 Hematuria, 3:40p Medicine - [facility] [place], unspecified R M.D. Office Visit 02/23/2017 [facility] Ryne J02.9 Acute pharyngitis, 10:20a Medicine - [facility], unspecified R M.D. Office Visit 01/08/2017 [facility] Ryne Z00.00 Encntr for general 3:20p Medicine - [address], adult medical exam R M.D. w/o abnormal findings Office Visit 09/13/2015 [facility] Elver Espino L23.7 Allergic contact 4:20p Medicine - [facility] [place], dermatitis due to R M.D.,FACP plants, except food Office Visit 05/03/2015 [facility] Declan Miramontes, N63 Unspecified lump 2:00p Medicine - [facility] [place] in breast R Office Visit 10/24/2014 [facility] Ry[place] 784.1 Throat Pain 11:40a [facility] 462 Pharyngitis Acute Office Visit 07/12/2014 10:45a [facility] Rob Laureano 784.0 Headache Luisa Brown 340 Multiple Sclerosis Office Visit 06/14/2014 [facility] Ryne 346.10 Migraine Common W/O 4:00p Denisa Montanez M.D. Intractable W/O Suite R Status Migrainosus Office Visit 06/06/2014 Carlyn Friedman Multiple Sclerosis 2:30p Neurologic Luisa Brown [facility] Office Visit 05/01/2014 [facility] [place] 466.0 Bronchitis Acute 11:20a Denisa Montanez M.D. Suite [facility] Office Visit 02/06/2014 [facility] Rob Friedman Multiple Sclerosis 10:45a Neurologic [facility] Office Visit 12/26/2013 [facility] Rob Friedman Multiple Sclerosis 3:30p Neurologic [facility] Office Visit 10/17/2013 [facility] Merari Higgins, 535.50 Gastritis & 1:30p Denisa Lee M.D. [facility]roduodenitis [facility]/O Hemorrhage Office Visit 09/08/2013 [facility] Merari Higgins, V70.0 Examination General 3:00p Denisa Lee M.D. Medical Routine AT [facility] 785.9 Cardiovascular Symptoms Other 723.1 Cervicalgia 246.8 Thyroid Disorders Other Spec 340 Multiple Sclerosis Office Visit 11/30/2012 1:45p [facility] Choco Friedman [facility] Brown M.D. Sclerosis Office Visit 10/26/2012 2:40p [facility] 373.11 [facility] Jesus Montanez M.D. Externum Office Visit 02/26/2012 2:30p [facility] Carolann Lira, 461.1 Sinusitis [facility] Frontal Office Visit 12/10/2011 10:00a [facility] Carolann Lira, 788.1 Dysuria [facility] 599.0 UTI Urinary Tract Infection Site Not Spec Office Visit 10/29/2011 10:45a [facility] Choco Friedman [facility] Brown M.D. Sclerosis 729.1 Myalgia & Myositis Unspec Office Visit 12/02/2010 9:00a DO Not Use [facility] 05/28/2010 9:00a DO Not Use [facility] 305.1 Tobacco Use Disorder V72.62 Laboratory Exam Ordered as Part Of Routine General Med Exam Office Visit 03/26/2010 8:00a DO Not Use [employer] Ryne 436 Cerebrovascular AT George Montanez M.D. Disease Acute Ill-Defined 305.1 Tobacco Use Disorder Office Visit 03/11/2010 10:00a DO Not Use [facility] Ryne Pachikara, [address] [facility] Office Visit 02/18/2010 10:40a DO Not Use [employer] Imogene Anneikara, [address] [facility] Office Visit 02/11/2010 11:20a DO Not Use [facility] Ryne Pach[place]ara, 461.9 Sinusitis [facility] Unspec 466.0 Bronchitis Acute Office Visit 12/04/2009 4:00p DO Not Use [employer] [facility] Ryne Anneikara, 305.1 Tobacco Use AT George Moran Disorder 564.1 Irritable Bowel Syndrome 723.1 Cervicalgia Office Visit 10/03/2009 3:00p DO Not Use [employer] Nai, 564.1 Irritable Bowel AT [facility] MD Deb Syndrome Office Visit 07/31/2009 2:20p DO Not Use [employer] Katelyn, 564.1 Irritable Bowel AT [facility] Luisa Magdaleno Syndrome 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 Radiological,Gastro Tract [facility] 786.09 Dyspnea & Respiratory Abnormalities Other 620.2 Ovarian Cyst Other & Unspec Plan of Treatment 10/31/2018 - Juan Grewal MDK62.5 Hemorrhage of anus and rectumNew Orders: Colonoscopy, Ordered: 10/31/18Comments:Risk and benefits of the procedure were discussed with patient.R15.2 Fecal urgencyComments:Risk and benefits of the procedure were discussed with patient.K58.0 Irritable bowel syndrome with diarrheaComments:Risk and benefits of the procedure were discussed with patient.
[2018-12-20] MEDS ORDERED: Iohexol 300* (CONTRAST) 10 ML SDV IV ONE (14:35)
[2018-12-20 15:33] VITALS: BP 120/81
== END 2018-12-20 15:18 | disposition home or self-care (01) ==
LOC: ED 11:52
DX: R10.31 Right lower quadrant pain (principal); R50.9 Fever, unspecified; N20.0 Calculus of kidney; Z87.891 Personal history of nicotine dependence; Z98.51 Tubal ligation status; Z79.899 Other long term (current) drug therapy
CPT/HCPCS: 36415; 74177; 80053; 81003; 84702; 85025; 86140; 99282; Q9967

== ENCOUNTER 2018-12-26 20:41 | Inpatient (IN) | payer BC ==
[2018-12-26] MEDS: NS 0.9% 1000 ML** 2,000 ML IV ONE (22:54)
[2018-12-26] MEDS ORDERED: Iohexol 300* (CONTRAST) 10 ML SDV IV ONE (23:29)
[2018-12-26] MEDS ORDERED: Ketorolac INJ* 30 MG/ML 1 ML VIAL IV PUSH ONE (23:55)
--- NOTE | 2018-12-26 23:55 | ED ---
GI/ HPI - HPI Summary HPI Summary: 42 year old female presents with abdominal pain for the past week. She admits to nausea vomiting diarrhea. She admits to fevers and chills. Has been having occasional cough. She admits to occasional shortness breath. No chest pain. No urinary symptoms. She has been taking Tylenol for fever. She was then asked weeks ago for UTI. She states the diarrhea has resolved. no blood in her stool. no recent travel. no one else sick. has a history of ms. She is on immunosuppressants. was seen here about a week ago and had a negative ct. she states that since then her pain is upper abdomen. her lower abd pain she believes was due to her period. - History of Current Complaint Chief Complaint: EDNauseaVomitDiarrh Time Seen by Provider: 12/26/18 22:17 Stated Complaint: FEVER, SOB, ABD PAIN PER PT Pain Intensity: 3 - Allergy/Home Medications Allergies/Adverse Reactions: Allergies Allergy/AdvReac Type Severity Reaction Status Date / Time No Known Allergies Allergy Verified 11/21/18 14:33 PMH/Surg Hx/FS Hx/Imm Hx Endocrine/Hematology History: Denies: Hx Diabetes Cardiovascular History: Denies: Hx Hypertension, Hx Pacemaker/ICD History: Denies: Hx Dialysis, Hx Renal Disease Sensory History: Denies: Hx Hearing Aid Psychiatric History: Denies: Hx Panic Disorder - Cancer History Hx Chemotherapy: No Hx Radiation Therapy: No - Surgical History Surgery Procedure, Year, and Place: TUBAL LIGATION,THYROID Infectious Disease History: No Infectious Disease History: Denies: Traveled Outside the [place] in Last 30 Days - Family History Known Family History: Positive: Non-Contributory - Social History Alcohol Use: Occasionally Substance Use Type: Reports: None Hx Tobacco Use: Yes Smoking Status (MU): Former Smoker Review of Systems Positive: Fever, Chills Negative: Chest Pain Positive: Shortness Of Breath, Cough Positive: Abdominal Pain, Vomiting, Diarrhea, Nausea All Other Systems Reviewed And Are Negative: Yes Physical Exam Triage Information Reviewed: Yes Vital Signs On Initial Exam: Initial Vitals Temp Pulse Resp BP Pulse Ox 98.7 F 128 18 92/57 98 12/26/18 20:43 12/26/18 20:43 12/26/18 20:43 12/26/18 20:43 12/26/18 20:43 Vital Signs Reviewed: Yes Appearance: Positive: Well-Appearing Skin: Positive: Warm, Dry Head/Face: Positive: Normal Head/Face Inspection Eyes: Positive: Normal, EOMI, TREY, Conjunctiva Clear ENT: Positive: Pharynx normal Respiratory/Lung Sounds: Positive: Clear to Auscultation, Breath Sounds Present Cardiovascular: Positive: Normal, RRR Abdomen Description: Positive: Soft, Other: - tenderness periumublical Bowel Sounds: Positive: Present Musculoskeletal: Positive: Normal Neurological: Positive: Normal Psychiatric: Positive: Normal Diagnostics - Vital Signs Vital Signs Temp Pulse Resp BP Pulse Ox 12/26/18 20:43 98.7 F 128 18 92/57 98 - Laboratory Result Diagrams: 12/27/18 06:18 12/27/18 00:11 Lab Statement: Any lab studies that have been ordered have been reviewed, and results considered in the medical decision making process. - Radiology chest Radiology Interpretation Completed By: Radiologist Summary of Radiographic Findings: no active disease - EKG No standard instances Cardiac Rate: Tachycardia EKG Rhythm: Sinus Tachycardia Summary of EKG Findings: sinus tachycardia Re-Evaluation - Re-Evaluation First Eval Re-Evaluation Time: 00:55 Change: Unchanged Comment: still feels awful Second Eval Re-Evaluation Time: 01:46 Change: Improved Comment: feels slightly better, feels very weak Third Eval Re-Evaluation Time: 02:06 Comment: is now having chest pain will get second ekg and troponin GIGU Course/Dx - Course Course Of Treatment: 42 year old female presents with abdominal pain for the past week. She admits to nausea vomiting diarrhea. She admits to fevers and chills. Has been having occasional cough. She admits to occasional shortness breath. No chest pain. No urinary symptoms. She has been taking Tylenol for fever. She was then asked weeks ago for UTI. She states the diarrhea has resolved. no blood in her stool. no recent travel. no one else sick. has a history of ms. She is on immunosuppressants. was seen here about a week ago and had a negative ct. she states that since then her pain is upper abdomen. her lower abd pain she believes was due to her period. On exam tenderness periumbilically. chest xray no acute findings. wbc normal. ct abd shows no acute findings. potassium 3. mag is 1.3. lft elevated which is new. CT shows contracted gallbaldder with question of stone. discussed case with dr dubose who is considered about potential ascending cholangitis. discussed with dr burch who will see tomorrow to see if needs further intervention such as ERCP. discussed with dr rausch who agrees to admit. 2nd ekg similiar to previous. - Diagnoses Differential Diagnoses - Female: Appendicitis, Cholecystitis, Gastroenteritis ( Viral), Gastroenteritis (Bacterial) Provider Diagnoses: Abdominal pain, Elevated LFTs Discharge ED - Sign-Out/Discharge Documenting (check all that apply): Patient Departure - Discharge Plan Condition: Stable Disposition: ADMITTED TO [facility] Referrals: Adrienne Jaquez MD [Primary Care Provider] - - Billing Disposition and Condition Condition: STABLE Disposition: Admitted to [facility] - Attestation Statements Provider Attestation: I have seen the patient with the KRISTAL and agree with the plan and documentation below except as noted: 42 -year-old female presents with abdominal pain found to have obstructive biliary pattern on labs, CT with sludge versus stone. Discussed with GI regarding possible ERCP, given Zosyn for low blood pressure and tachycardia and setting of possible biliary obstruction. Eamon Dubose MD
[2018-12-27] MEDS: NS 0.9% 1000 ML** 2,000 ML IV ONE (00:17)
[2018-12-27 00:27] LABS: ABS Lymphocytes 0.1 10^3/ul (1.0-4.8); ABS Monocytes 0.4 10^3/ul (0-0.8); ABS Neutrophils 6.1 10^3/ul (1.5-7.7); Eosinophil % 0.5 %; Hematocrit 35 % (35-47); Hemoglobin 11.3 g/dL (12.0-16.0); Lymphocyte % 1.5 %; Mean Corpuscular HGB Conc 33 g/dL (31-36); Mean Corpuscular Hemoglobin 27 pg (27-31); Mean Corpuscular Volume 82 fL (80-97); Platelet Count 196 10^3/uL (150-450); Red Blood Count 4.23 10^6 /uL (3.70-4.87); Red Cell Distribution Width 15 % (10-15); White Blood Count 6.7 10^3/uL (3.5-10.8)
[2018-12-27 00:50] LABS: ALT 471 U/L (7-52); AST 338 U/L (13-39); Albumin 3.4 g/dL (3.2-5.2); Albumin/Globulin Ratio 1.3 (1-3); Alkaline Phosphatase 212 U/L (34-104); Anion Gap 7 mmol/L (2-11); BUN/Creatinine Ratio 7.7 (8-20); Blood Urea Nitrogen 4 mg/dL (6-24); C Reactive Protein 11.76 mg/L (<8.01); CO2 Carbon Dioxide 27 mmol/L (22-32); Calcium 8.1 mg/dL (8.6-10.3); Chloride 99 mmol/L (101-111); EGFR African American 155.7 (>60); EGFR Non-African American 128.7 (>60); Globulin 2.6 g/dL (2-4); Glucose 124 mg/dL (70-100); Magnesium 1.3 mg/dL (1.9-2.7); Sodium 133 mmol/L (135-145)
[2018-12-27 00:54] LABS: Urine Appearance Clear; Urine Bacteria 1+ (Absent); Urine Bilirubin Negative (Negative); Urine Blood 1+ (Negative); Urine Color Amber; Urine Glucose Negative (Negative); Urine Ketones 1+ (Negative); Urine Nitrite Negative (Negative); Urine Protein Negative (Negative); Urine Red Blood Cell Trace(0-2/hpf) (Absent); Urine Squamous Epithelial Cell Present (Absent); Urine Urobilinogen Negative (Negative); Urine White Blood Cell Trace(0-5/hpf) (Absent)
[2018-12-27 00:55] LABS: HCG Pregnancy 1.45 mIU/mL
[2018-12-27] MEDS ORDERED: Magnesium Sulfate 2 GM IV* 2 GM/50 ML BAG IVPB ONE (00:57)
[2018-12-27] MEDS ORDERED: Potassium Chloride* LIQUID 20 MEQ/15 ML UDC PO ONE (00:58)
[2018-12-27] MEDS ORDERED: Piperacillin/Tazobac ADVAN(*) 3.375 GM in NS 0.9% 100 ML* 100 ML IVPB ONE (01:13)
[2018-12-27] MEDS ORDERED: KCL 10 MEQ/50 ML IVPREMIX* 10 MEQ/50 ML BAG IV ONE (01:33)
[2018-12-27] MEDS ORDERED: Zosyn per Pharmacy* NOTE FOLLOW UP SCH (04:00)
[2018-12-27] MEDS: ZOSYN 3.375 GM Q8H per EXTENDED INFUSION IVPB SCH ×8 (06:00→22:41)
[2018-12-27 06:30] LABS: ABS Lymphocytes 0.3 10^3/ul (1.0-4.8); ABS Monocytes 0.9 10^3/ul (0-0.8); ABS Neutrophils 6.2 10^3/ul (1.5-7.7); Eosinophil % 0.2 %; Hematocrit 34 % (35-47); Hemoglobin 11.2 g/dL (12.0-16.0); Lymphocyte % 4.2 %; Mean Corpuscular HGB Conc 33 g/dL (31-36); Mean Corpuscular Hemoglobin 28 pg (27-31); Mean Corpuscular Volume 83 fL (80-97); Mean Platelet Volume 8.1 fL (7.4-10.4); Platelet Count 173 10^3/uL (150-450); Red Blood Count 4.07 10^6 /uL (3.70-4.87); Red Cell Distribution Width 15 % (10-15); White Blood Count 7.5 10^3/uL (3.5-10.8)
[2018-12-27 06:49] LABS: Albumin 3.3 g/dL (3.2-5.2); Albumin/Globulin Ratio 1.3 (1-3); BUN/Creatinine Ratio 8.3 (8-20); EGFR African American 170.8 (>60); EGFR Non-African American 141.2 (>60); Globulin 2.5 g/dL (2-4); Potassium 4.8 mmol/L (3.5-5.0); Total Protein 5.8 g/dL (6.4-8.9)
[2018-12-27] MEDS: NS 0.9% w/ 20 Meq KCL 1000 ML* 1,000 ML IV SCH ×3 (07:36→20:29)
[2018-12-27] MEDS ORDERED: Acetaminophen TAB* 325 MG PO PRN (09:58)
[2018-12-27] MEDS ORDERED: Acetaminophen TAB* 325 MG ONE (10:01)
[2018-12-27] MEDS: Amantadine CAP* 100 MG PO SCH ×2 (10:07→20:30)
[2018-12-27] MEDS: Heparin VIAL(*) 5000 UNITS/ML VIAL (FIVE THOUSAND) SUBCUT SCH ×2 (10:08→20:30)
[2018-12-27 10:30] LABS: Indirect Bilirubin 0.6 mg/dL (0.3-1.0)
--- NOTE | 2018-12-27 10:47 | HP ---
CC: Dr. Jaquez * ADMISSION HISTORY AND PHYSICAL: DATE OF ADMISSION: 12/27/18 CHIEF COMPLAINT: Vomiting. HISTORY OF PRESENT ILLNESS: Ms. Chaparro is a 42-year-old woman with history of multiple sclerosis, who developed vomiting and generalized abdominal pain about 1 week ago. The pain has worsened over the last week and has moments where it has resolved and moments where it has worsened with activity and with p.o. intake. She was seen in this emergency department on 12/20/18 and had normal liver enzymes and a CT that was reassuring. At that time, she was diagnosed with gastroenteritis and sent home. Since then, she has had fevers up to 102 at home at the maximum, but often it is 99 to 100 in general last week. The patient does report diarrhea but no hematochezia or melena. The abdominal pain comes and goes in a colicky pattern, mainly periumbilical. PAST MEDICAL HISTORY: Includes multiple sclerosis and migraines. PAST SURGICAL HISTORY: Partial thyroidectomy in 2004 and tubal ligation. MEDICATIONS: On admission are: 1. Amantadine 100 mg p.o. b.i.d. 2. Amitriptyline 30 mg p.o. q.h.s. 3. Vitamin C 1000 mg p.o. daily. 4. Vitamin D 1000 units p.o. daily. 5. Dandelion root daily. 6. Ginkgo biloba daily. 7. Probiotic daily. 8. Multivitamin daily. 9. Oxybutynin ER 10 mg p.o. q.h.s. 10. Aubagio 14 mg p.o. daily for multiple sclerosis. ALLERGIES: She has no known drug allergies. 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 She is . She has 3 children. She quit tobacco at age 33. She drinks alcohol 1 to 2 times a week. No recreational drugs. FAMILY HISTORY: Notable for mother who of lung cancer, maternal grandmother had colon cancer, father at age 38 of [place]. REVIEW OF SYSTEMS: The patient denies any chest pain or palpitations. The patient does have anorexia. The patient denies any cough, hemoptysis, or shortness of breath. The patient has nausea, vomiting, diarrhea, abdominal pain as above. The patient denies any hematuria or dysuria. Remainder of 14- point review of systems is negative other than mentioned in the HPI. PHYSICAL EXAMINATION GENERAL: She is alert, in no acute distress. VITAL SIGNS: Temperature is 37.1, pulse 95 to 106, respirations 17, blood pressure is 109/70, oxygen saturation 96%. HEENT: Head is normocephalic, atraumatic. Sclerae anicteric. Pupils equal, round, reactive to light and accommodation. Oropharynx is moist. No lesions. NECK: No JVD. No carotid bruits. No thyromegaly. LUNGS: Clear to auscultation and percussion bilaterally. HEART: Regular rate and rhythm without murmurs or gallops. ABDOMEN: Tender in periumbilical region. Positive bowel sounds. Negative Ackerman's sign. No masses. EXTREMITIES: No peripheral edema. Dorsalis pedis pulses are 2+. NEUROLOGIC: Cranial nerves II through XII are intact. Motor strength is 5/5 throughout. Deep tendon reflexes are absent bilaterally in the lower extremity. She is alert and oriented x3. LABORATORY DATA/DIAGNOSTIC STUDIES: Sodium 133, potassium 3.0, chloride 99, bicarb 27, BUN 4, creatinine 0.52, glucose 124. Calcium 8.1, magnesium 1.3. C- reactive protein 11.76. Troponin 0.00. Alk phos 212, AST 338, ALT 471. Bilirubin is 1.9. HCG 1.45. Lipase 10. White count 6.7, hemoglobin 11.3, hematocrit 35%, platelets 196. Urinalysis shows specific gravity 1.040, 1+ ketones, 1+ blood. EKG shows sinus tachycardia without ischemic ST or T-wave changes. Chest x-ray is negative for infiltrates or effusions. Abdominal and pelvis CT shows contracted gallbladder with stones versus sludge, there are no visible stones in the common bile duct. ASSESSMENT AND PLAN: A 42-year-old woman presenting with cholecystitis and cholangitis versus choledocholithiasis. Arguing towards cholangitis would be her fevers, low blood pressure, but she does not have clear signs of sepsis with her blood pressure, temperature, respiratory rate is stable, her heart is currently below 100 and she has no white count. The patient will be admitted to the hospital and monitored closely for sepsis. She will be started on Zosyn and will be given fluid resuscitation. Arguing for choledocholithiasis is the obstructive picture of liver enzymes with alk phos elevation, out of proportion to AST, ALT and her elevated bilirubin. The patient will have a GI consult with an eye towards MRCP. For hypokalemia, this has been repleted in the ER and will be repleted with IV fluids, maintenance fluids. This can be rechecked in the morning. Code status is full. Heparin subcu will be used for DVT prophylaxis. She is at moderate risk. For her multiple sclerosis, we will hold her Aubagio as this has been known to cause pancytopenia, liver enzymes problems in the past but is not suspected to be causing at this time. [id number]/CPS #: [id number] MTDD
--- NOTE | 2018-12-27 13:31 | PN ---
Hospitalist Progress Note Date of Service: 12/27/18 Subjective: Patient isnt feeling to well. She has umbilical pain that started last Wednesday. She rates the pain as a 4/10. It comes and goes and is worse with moving. She has nausea and vomiting that started on Wednesday. This morning she vomited a few times. She has been feeling sick with congestion and a runny nose. She also has shortness of breath on exertion. Her appetite has been down and she hasnt had a bowel movement since Wednesday. Objective: Vitals: BP-120/75, resp-18, pulse-103, temp-99.5, 100% O2 saturation. Appearance: Positive: Well-Appearing Skin: Positive: Warm, Dry Head/Face: Positive: Normal Head/Face Inspection Eyes: Positive: Normal, EOMI, TREY, Conjunctiva Clear ENT: Positive: Pharynx normal Respiratory/Lung Sounds: Positive: Clear to Auscultation, Breath Sounds Present Cardiovascular: tachycardia Abdomen: tenderness periumbilical region. Bowel Sounds: Positive: Present Musculoskeletal: decreased strength and sensation on her left side. More so on the left lower extremity. Neuro CN 2-12 intact. Hgb: 11.2 L Hct: 34 L Abs lymps: 0.3 L Abs monos: 0.9 H BUN: 4 L Creatinine: 0.48 L Glucose: 108 H Calcium: 8 L Total bili: 2.0 H Ast: 357 H Alt: 482 H Alp: 217 H Total protein: 5.8 L Had some overnight chest pain EKG was ordered: sinus tachycardia rate>99. CT abdomen and pelvis: little changes since 12/20/18, small non-obstructive left renal calculus in the upper pole. Multiple lesions of the liver which are likely hemangiomas. Contacted gallbladder with question of cholesterol stones of sludge. Differential Diagnoses - Female: Appendicitis, Cholecystitis, Gastroenteritis ( Viral), Gastroenteritis (Bacterial) Plan: 1. Obstructive biliary pattern on labs, CT with sludge versus stone. Discussed with GI regarding possible ERCP but we will order MRCP instead because its less invasive, she is being given Zosyn 100 mls @ 25 mls/hr IVPB Q8H for low blood pressure and tachycardia and setting of possible biliary obstruction. CT shows contracted gallbaldder with question of stone. discussed case with dr stinson who is considered about potential ascending cholangitis. Hepatitis lab values was ordered as well to rule out hepatitis. She will be given fluids. 2. She has a history of Multiple Sclerosis. She is on immunosuppressants. Amantdaine 100 mg PO BID, 3. Incontinence due to MS is being treated with oxybutynin chloride 10 mg PO. 4. DVT prophylaxis: heparin sodium 5,000 units subcut Q12HR.
--- NOTE | 2018-12-27 14:04 | PN ---
Subjective Date of Service: 12/27/18 Interval History: Feverish, feeling awful. Complained of belly button abdominal pain, loss of appetite, no nausea or vomiting. Revisited history, had constant abdominal pain, fever for 1 week before coming in. Objective Active Medications: Acetaminophen (Tylenol Tab*) 650 mg PO Q6H PRN PRN Reason: PAIN - MILD Last Admin: 12/27/18 10:07 Dose: 650 mg Amantadine HCl (Symmetrel Cap*) 100 mg PO BID [facility] Last Admin: 12/27/18 10:07 Dose: 100 mg Amitriptyline HCl (Elavil Tab*) 30 mg PO BEDTIME [facility] Heparin Sodium (Porcine) (Heparin Vial(*)) 5,000 units SUBCUT Q12HR [facility] Last Admin: 12/27/18 10:08 Dose: 5,000 units Potassium Chloride/Sodium Chloride (Ns 0.9% W/ 20 Meq Kcl 1000 Ml*) 1,000 mls @ 125 mls/hr IV PER RATE [facility] Last Admin: 12/27/18 07:36 Dose: 125 mls/hr Piperacillin Sod/Tazobactam (Sod 3.375 gm/ Sodium Chloride) 100 mls @ 25 mls/ hr IVPB Q8H [facility] Last Admin: 12/27/18 06:00 Dose: 25 mls/hr Oxybutynin Chloride (Ditropan Xl Tab*) 10 mg PO BEDTIME [facility] Pharmacy Consult (Zosyn Per Pharmacy*) 1 note FOLLOW UP .ZOSYN PER PHARMACY [facility] Vital Signs - 8 hr 12/27/18 12/27/18 12/27/18 06:00 06:18 06:46 Temperature Pulse Rate 89 91 94 Respiratory 22 12 6 Rate Blood Pressure 122/65 111/70 (mmHg) O2 Sat by Pulse 99 99 100 Oximetry 12/27/18 12/27/18 12/27/18 06:48 07:00 07:06 Temperature 98.7 F Pulse Rate 93 92 88 Respiratory 1 18 Rate Blood Pressure 118/70 118/70 (mmHg) O2 Sat by Pulse 100 100 Oximetry 12/27/18 12/27/18 12/27/18 07:33 07:45 13:05 Temperature 99.5 F 98.2 F Pulse Rate 103 87 Respiratory 18 18 16 Rate Blood Pressure 120/75 103/66 (mmHg) O2 Sat by Pulse 100 97 Oximetry Oxygen Devices in Use Now: None Exam: Oxygen Devices in Use Now: None Appearance: in acute distress, sick looking, cooled towel on forehead Eyes: No Scleral Icterus Ears/Nose/Mouth/Throat: NL Teeth, Lips, Gums Neck: NL Appearance and Movements; NL JVP Respiratory: Symmetrical Chest Expansion and Respiratory Effort Cardiovascular: RRR Abdominal: NL Sounds; No Distention; tenderness over right upper quadrant, chandler sign neg Lymphatic: No Cervical Adenopathy Extremities: No Edema Result Diagrams: 12/27/18 06:18 12/27/18 06:18 Assess/Plan/Problems-Billing Assessment: 42 y/o female with history of MS on immunosuppressant pressented with acute onset of abdominal pain and fever, constant for 1 week. Found to have transaminitis and elevated bilirubin, with non obstructing gallbladder stone in seen CT scan. Differential currently include acute cholangitis vs passed gallbladder stone vs acute hepatitis. - Patient Problems (1) Abdominal pain Current Visit: Yes Status: Acute Code(s): R10.9 - UNSPECIFIED ABDOMINAL PAIN SNOMED Code(s): 20675654 Comment: persistent fever and abdominal pain for 1 week, transaminitis with elevated direct bill, CT shows contracted gallbladder with qustion of cholesterol stones or sludge. MRCP to look for biliary stone. continue iv zosyn symptomatic control (2) Transaminitis Current Visit: Yes Status: Acute Code(s): R74.0 - NONSPEC ELEV OF LEVELS OF TRANSAMNS & LACTIC ACID DEHYDRGNSE SNOMED Code(s): 413624715 Comment: could be part of the illness or isolated liver dysfunction due to infection complete acute hepatitis panel (3) DVT prophylaxis Current Visit: Yes Status: Acute Code(s): Z29.9 - ENCOUNTER FOR PROPHYLACTIC MEASURES, UNSPECIFIED SNOMED Code(s): 384773391 Comment: subc heparin Status and Disposition: Inpatient Medicine. Attestation Documenting Resident: Mary Hernández Supervising Physician: Jeremiah Steiner Attending/Supervising Physician Comment: Agree with plan as outlined in note from Dr. Hernández today unless indicated here. Abdominal pain with elevated aminotransaminases, ALK and direct hyperbilirubinemia associated with fevers. Concern for cholangitis now on zosyn pending a MRCP that was postponed 2/2 ED volume/and or cases. Febrile this evening to 103, blood cultures ordered and 1 L NS bolused. c/w NS 125cc/hr after bolus. GI consulted. NPO should pt go for ERCP. Attestation: This service has been performed in part by a resident under the direction of a teaching physician.I, Jeremiah Steiner, performed the service, or was physically present during the critical, or chen portions of the service, furnished by the resident. I participated in the management of the patient.
[2018-12-27 14:07] LABS: Hepatitis B Surface Antigen Nonreactive (Nonreactive)
[2018-12-27 14:24] LABS: Hepatitis C Antibody Negative (Negative)
[2018-12-27] MEDS ORDERED: NS 0.9% 1000 ML** 1,000 ML IV ONE (17:43)
[2018-12-27] MEDS: Ondansetron INJ* 2 MG/ML VIAL IV PRN (17:46)
[2018-12-27] MEDS: Ibuprofen TAB* 400 MG PO PRN (17:47)
[2018-12-27] MEDS: Morphine INJ* 2 MG/ML 1 ML SYRINGE (TWO MG - NEW SYRINGE VERSION) IV PRN (18:39)
[2018-12-27] MEDS ORDERED: Oxybutynin XL TAB* 5 MG PO SCH (21:00)
[2018-12-27] MEDS ORDERED: Amitriptyline TAB* 10 MG PO SCH (21:00)
[2018-12-28] MEDS: ZOSYN 3.375 GM Q8H per EXTENDED INFUSION IVPB SCH ×4 (05:14→13:43)
[2018-12-28] MEDS: Ibuprofen TAB* 400 MG PO PRN (06:31)
[2018-12-28] MEDS: Morphine INJ* 2 MG/ML 1 ML SYRINGE (TWO MG - NEW SYRINGE VERSION) IV PRN ×4 (07:01→17:19)
[2018-12-28 07:30] LABS: ABS Eosinophils 0.1 10^3/ul (0-0.6); ABS Lymphocytes 0.3 10^3/ul (1.0-4.8); ABS Monocytes 0.6 10^3/ul (0-0.8); ABS Neutrophils 4.4 10^3/ul (1.5-7.7); Eosinophil % 2.1 %; Hematocrit 32 % (35-47); Hemoglobin 10.8 g/dL (12.0-16.0); Lymphocyte % 5.2 %; Mean Corpuscular HGB Conc 33 g/dL (31-36); Mean Corpuscular Hemoglobin 27 pg (27-31); Mean Corpuscular Volume 82 fL (80-97); Mean Platelet Volume 8.8 fL (7.4-10.4); Platelet Count 182 10^3/uL (150-450); Red Blood Count 3.96 10^6 /uL (3.70-4.87); Red Cell Distribution Width 15 % (10-15); White Blood Count 5.4 10^3/uL (3.5-10.8)
--- NOTE | 2018-12-28 07:50 | PN ---
Hospitalist Progress Note Date of Service: 12/28/18 Subjective: Patient has constant belly button abdominal pain that started last Wednesday. It comes and goes and is worse with moving. She had 7/10 pain this morning then was given morphine which brought the pain down to 5/10. She denies nausea and vomiting. She has been having fevers frequently for the last week, her last one being yesterday afternoon. Objective: Vitals: BP-114/69, resp-14, pulse-75, temp-98.1, 98% O2 saturation on room air. Appearance: Positive: Well-Appearing Skin: Positive: Warm, Dry Head/Face: Positive: Normal Head/Face Inspection Eyes: Positive: Normal, EOMI, TREY, Conjunctiva Clear ENT: Positive: Pharynx normal Respiratory/Lung Sounds: Positive: Clear to Auscultation, Breath Sounds Present Cardiovascular: tachycardia Abdomen: tenderness periumbilical region. Bowel Sounds: Positive: Present Musculoskeletal: decreased strength and sensation on her left side. More so on the left lower extremity. Neuro CN 2-12 intact. hgb: 10.8 hct: 32 L abs lymphs: 0.3 L BUN: 5 L Creatinine: 0.46 L calcium: 7.5 L total bili: 2.4 H direct bili: 1.9 H AST: 421 H ALT: 594 H ALP: 183 H CRP: 28.68 H Total protein: 5.3 L Albumin: 3.0 L Had some overnight chest pain EKG was ordered: sinus tachycardia rate>99. CT abdomen and pelvis: little changes since 12/20/18, small non-obstructive left renal calculus in the upper pole. Multiple lesions of the liver which are likely hemangiomas. Contacted gallbladder with question of cholesterol stones of sludge. Differential Diagnoses - Female: Appendicitis, Cholecystitis, Gastroenteritis ( Viral), Gastroenteritis (Bacterial) MRCP: No biliary obstruction, pericholecystic fluid likely due to underlying liver dysfunction. Multiple stable hepatic hemangiomas or complex liver cysts. Plan: 1. Abdominal Pain: Persistent fever and abdominal pain for 1 week, transaminitis with elevated direct bilirubin. Obstructive biliary pattern on labs, CT with sludge versus stone. Discussed with GI regarding possible ERCP but we will order MRCP instead because its less invasive, she is being given Zosyn 100 mls @ 25 mls/hr IVPB Q8H for low blood pressure and tachycardia and setting of possible biliary obstruction. CT shows contracted gallbaldder with question of stone. discussed case with dr stinson who is considered about potential ascending cholangitis. Hepatitis lab values was ordered as well to rule out hepatitis. She will be given fluids. MRCP showed no biliary obstruction. On 2 mg IV Q2H PRN for severe pain. 2. Transaminitis: could be part of illness or isolated liver dysfunction due to infection. 3. She has a history of Multiple Sclerosis. She is on immunosuppressants. Amantdaine 100 mg PO BID, 4. Incontinence due to MS is being treated with oxybutynin chloride 10 mg PO. 5. DVT prophylaxis: heparin sodium 5,000 units subcut Q12HR.
[2018-12-28 07:52] LABS: Albumin/Globulin Ratio 1.3 (1-3); BUN/Creatinine Ratio 10.9 (8-20); C Reactive Protein 28.68 mg/L (<8.01); Calcium 7.5 mg/dL (8.6-10.3); EGFR African American 178.6 (>60); EGFR Non-African American 147.6 (>60); Globulin 2.3 g/dL (2-4); Indirect Bilirubin 0.5 mg/dL (0.3-1.0); Potassium 3.9 mmol/L (3.5-5.0); Total Bilirubin 2.4 mg/dL (0.2-1.0); Total Protein 5.3 g/dL (6.4-8.9)
[2018-12-28] MEDS: Heparin VIAL(*) 5000 UNITS/ML VIAL (FIVE THOUSAND) SUBCUT SCH (09:25)
[2018-12-28] MEDS: Amantadine CAP* 100 MG PO SCH (09:26)
--- NOTE | 2018-12-28 09:26 | CONS ---
GASTROENTEROLOGY CONSULTATION: DATE OF CONSULT: CONSULTING PHYSICIAN: Dr. Jeremiah Steiner. REASON FOR CONSULTATION: Abdominal pain with elevated liver enzymes and indeterminate CT scan imaging results. HISTORY OF PRESENT ILLNESS: This is a 43-year-old woman with MS for over 10 years, currently taking Aubagio, who developed abdominal pain on 12/19/18. She indicated it was infraumbilical, nonlateralizing, and she had some chills. She felt short of breath and weak. Her period was starting and that complicated her interpretation as to whether the pain was new. She continued to have these symptoms intermittently and went to the emergency room on 12/20/18. She reported the pain as lower abdominal and that she had had antibiotics the week before for urinary infection. Her exam was benign and CT scan was nonspecific with CBC unremarkable with white count of 5.6, hemoglobin 12.4. LFTs are normal. She was afebrile in the ER and was sent home with a probable diagnosis of gastroenteritis. In the intervening week, she continued to have some intermittent pain, but actually thought she was getting better for a few days. Then, things got worse on 12/24/18 again with nausea and vomiting, subjective fever, and her Primary sent her back to the emergency room on 12/26/18. She had a temperature of 98.7 , afebrile. White count was normal and CT scan was thought to be unchanged. The gallbladder was contracted. Her LFTs were strikingly off with bilirubin of 1.9 and AST of 238, ALT of 471, and alkaline phosphatase of 212. Lipase was less than 10. The picture was unclear as to cause since there were no stones yet seen however a common duct stone was suspected and she was placed on Zosyn and admitted. It is of note that she presented with right flank pain to the emergency room in August 2017, and at that time, declined a CT scan. Her lab work then was normal, CBC and LFTs. PAST MEDICAL HISTORY: 1. Multiple sclerosis - on Aubagio for at least 2 years (ER records confirm). 2. Partial thyroidectomy in 2004. 3. Tubal ligation in the remote past. 4. Probable liver hemangiomas MEDICATIONS: As an outpatient, Aubagio 14 mg, amantadine 100 mg b.i.d., amitriptyline 30 mg at bedtime, oxybutynin ER 10 mg at bedtime, vitamin C 1000, vitamin D 1000 units, extracts of dandelion and ginkgo biloba, and a probiotic and multivitamin. ALLERGIES: None known to drugs. FAMILY HISTORY: Mother of lung cancer. Maternal grandmother had colon cancer. 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 REVIEW OF SYSTEMS: Just a month ago, she had a colonoscopy because of some bright red rectal bleeding. The exam was normal. She has no history of migraines, seizures, CA, arrhythmias, syncope, TB, hemoptysis, prior hepatitis or liver disease. Her CT scans show liver lesions that have been stable, felt to be most compatible with hemangiomas. No history of peptic disease. PHYSICAL EXAM: She is a slender, slightly pale woman, in no overt distress at this time stating her pain has receded. She has some intermittent feelings of feverishness. Vital signs were temperature of 98.7, pulse 88, blood pressure of 118/70. HEENT exam shows no icterus. She has no adenopathy. Her lungs are clear. Heart sounds are normal. Breast and pelvic exams are deferred. Her abdomen is flat, firm without any focal tenderness, although there is generalized tenderness to deep palpation. Rectal deferred. Extremities showed no edema. Neurologic is nonfocal with normal cranial nerves and movement of all 4 extremities in bed. IMPRESSION: A 43-year-old woman with abdominal pain over 8 days with fevers from the start. Studies so far have not been able to confirm the source though transaminases are elevated. While the history of rapid change in LFTs might suggest choledocholithiasis, it would be unusual for this to have a normal white count for a week including a week after the onset of fevers. Usually, fevers would follow later after a period of colic. Acute hepatitis studies are pending MRCP will be requested and will be important in decisions. Atypical infections may need to be considered. [id number]/[facility] #: [id number] YVONNE
[2018-12-28] MEDS: NS 0.9% w/ 20 Meq KCL 1000 ML* 1,000 ML IV SCH (11:03)
[2018-12-28] MEDS ORDERED: Midazolam* 1 MG/ML 5 ML VIAL (5 MG) ONE (14:55)
[2018-12-28] MEDS ORDERED: fentaNYL* 50 MCG/ML 2 ML VIAL (100 MCG VIAL) ONE (14:55)
[2018-12-28] MEDS: Ondansetron INJ* 2 MG/ML VIAL IV PRN (15:08)
[2018-12-28 16:08] VITALS: BP 117/74
--- NOTE | 2018-12-28 16:52 | TRS ---
CC: Dr. Jaquez * DATE OF ADMISSION: 12/27/2018. DATE OF TRANSFER: 12/28/2018. DISPOSITION ON TRANSFER: Transfer to a higher level of care at [facility]. CONDITION ON TRANSFER: Stable. PRIMARY DIAGNOSIS: Presumptive cholangitis, transfer for higher level of care access to ERCP with hepatobiliary support if needed. HISTORY OF PRESENT ILLNESS AND HOSPITAL COURSE: This is a 42-year-old female with a past medical history of multiple sclerosis, on immunosuppressants, including Aubagio who developed approximately a week of abdominal pain that was constant in nature, associated with fevers, worsening until she developed nausea and vomiting the day prior to presentation, who presented to the hospital. She was found with an absence of a leukocytosis, but high fevers up to 103 on 12/27/2018, relative hypotension 92/57, improved with fluids. Her liver enzymes were notable for a total bilirubin of 1.9 which was largely direct , AST 338, ALT 471, alk phos 212, lipase less than 10. During her hospital stay , between December 27 overnight and December 28 on the day of transfer, her bilirubin increased to 2.4, direct portion 1.9. AST and ALT increased to 421 and 594 respectively and alk phos had improved to 183. Her CRP was 28. Her urine had 1+ bacteria, squamous epithelial cells, ketones and blood. She had a negative acute hepatitis panel, including hepatitis A, B and C. She remained with an absence of a leukocytosis and persisted to have fevers. She was placed on Zosyn for concern of cholangitis. She was seen in consultation with our estimator and drafter. A CT abdomen and pelvis performed on presentation was notable for nonobstructive left renal calculi in the right upper pole. Multiple low attenuating lesions of the liver which were suspicious for hemangiomas and contracted gallbladder with question of cholesterol stones or sludge. An MRCP was conducted and performed on 2018. The impression was no findings to correlate with the patient's symptomatology, specifically no biliary obstruction. There was pericholecystic fluid likely due to underlying liver dysfunction. Multiple static hepatic hemangiomas were additionally present. The pericholecystic fluid was identified as mild without gallbladder wall thickening or intraluminal stones. Her blood cultures remained negative, drawn on 12/27/2018 at 1:45, currently 04/2015 at 1600 are negative. Her urine culture remains negative. There was concern again for infection given her persistent fevers. Last fever was 2018, 102 Fahrenheit at 7:30 in the morning. ERCP was recommended by primary team. The estimator and drafter did not disagree with this, however was concerned about performing it given the small caliber of her common bile duct as seen on MRCP without adequate surgical backup experienced in hepatobiliary surgery. For this reason, transfer to a higher level of care with backup with hepatobiliary surgical services was recommended. The patient was accepted for transfer to [place]. She will continue on Zosyn prior to her discharge. She received four doses total with her last of Zosyn 3.375 gm delivered at 1:45 p.m. today. The patient continued to have abdominal pain, although it improved. Her nausea and vomiting were resolved. Thank you for your assistance in the care of this patient. If further questions arise, please do not hesitate to contact this author, Dr. Jeremiah Steiner at and ask the buggy operator to page. Thank you for your assistance again. [id number]/[facility] #: [id number] YVONNE
== END 2018-12-28 17:30 | disposition short-term general hospital (02) ==
LOC: ED 20:41 → SSU 12-27 03:15 → MEDTELE 12-27 18:05
PROVIDERS: ADMIT Internal Medicine; ATTEND Internal Medicine
DX: K83.09 Other cholangitis (principal); G35 Multiple sclerosis; G43.909 Migraine, unspecified, not intractable, without status migrainosus; E89.0 Postprocedural hypothyroidism; I95.9 Hypotension, unspecified; R32 Unspecified urinary incontinence; D18.03 Hemangioma of intra-abdominal structures; E87.6 Hypokalemia; R74.0 Nonspecific elevation of levels of transaminase and lactic acid dehydrogenase [LDH]; N20.0 Calculus of kidney; Z72.89 Other problems related to lifestyle; Z80.1 Family history of malignant neoplasm of trachea, bronchus and lung; Z80.0 Family history of malignant neoplasm of digestive organs; Z87.891 Personal history of nicotine dependence; Z98.51 Tubal ligation status
CPT/HCPCS: 36415; 71046; 74177; 74181; 76376; 80048; 80053; 80074; 80076; 81003; 81015; 82247; 82248; 83605; 83690; 83735; 84484; 84702; 85025; 86140; 87040; 87086; 93005; 96361; 96374; 99284; A9270-GY; J1644; J1885; J2250; J2270; J2405; J2543; J3010; J3475; J3480; Q9967